=== PATIENT | male | born 1960 | race Two or more races ===

== ENCOUNTER 2024-08-14 06:16 | Outpatient (REF) | payer OTHER, MEDICARE, SELFPAY ==
--- NOTE | ~2024-08-14 | XR_ITS ---
EXAMINATION: XR SHOULDER, RIGHT CLINICAL INFORMATION: M25.519 - Pain in unspecified shoulder COMPARISON: None available. TECHNIQUE: AP external rotation, Grashey, scapular Y, and axillary views of the right shoulder. FINDINGS: Diffuse osteopenia. Probable old fracture deformity of the proximal humerus. No acute fracture or dislocation. Moderate degenerative arthritis of the glenohumeral joint with undersurface spurs. Mild degenerative AC joint arthritis with mild undersurface spurring. There is a type II acromion. Trace undersurface spurring. Mild to moderate narrowing of the subacromial space is noted. Remainder of the soft tissue and bony structures appear normal. XR/XR shoulder RT min 2V IMPRESSION: 1. Osteopenia. 2. Probable old fracture deformity proximal humerus. 3. Moderate glenohumeral joint and mild AC joint degenerative arthritis. 4. Mild to moderate narrowing of the subacromial space. Electronically signed by: Arjun Miranda MD 08/15/2024 01:55 PM EDT
--- OUTSIDE RECORDS SUMMARY | 2024-08-15 06:26 | XMS_ITS | Clinical Summary ---
Author Organization [address] [place] [address] Address [address] [place] [address] Phone Care Team Providers Care Billet Worker Name Role Phone Ankit Salazar MD Primary Care Provider [phone] Allergies Active Allergy Reactions Criticality Noted Date [...] up Dec 2011 Hypertension associated with diabetes ([facility] V24, [facility]/HCC V28) 04/02/2024 Vitamin D deficiency 04/02/2024 Bilateral pulmonary embolism ([facility] V24, [facility]/ CC V28) 11/17/2023 Carotid bruit present 12/13/2022 Numbness and tingling of foot 12/13/2022 Microalbuminuria 03/07/2020 Overview (04/02/2024): 08/2018 41.4 AC joint arthropathy 02/29/2020 Hyperlipidemia 04/16/2019 Periumbilical hernia 09/19/2018 Abdominal wall seroma 09/30/2017 Chronic cholecystitis due to gallbladder calculus with obstruction 09/30/2017 Morbid obesity with BMI of 4 0.0-44.9, adult ([facility] V24, [facility] V28) 09/30/2017 Chronic pain of both shoulders 05/02/2017 Melanoma of eye ([facility] V24, [facility] V28) 03/09 Bilateral shoulder pain 11/04/2016 DM (diabetes mellitus), type 2 with renal complications ([facility], [facility] V28) 08/05/2016 Spinal stenosis 08/22/2014 Anemia 05/16/2014 BPH (benign prostatic hyperplasia) 12/22/2013 Overview (04/02/2024): Dr Stacy Gillis 08/13/2013 Overview (04/02/2024): 02/03; ?d/t metformin, unclear Encounters Date Type Department Care Team Description 08/06/2024 10:30 AM EDT Office Visit [facility] Hematology Oncology [address] [place] [phone] Richard Oneill MD History of pulmonary embolism (Primary Dx); Prothrombin gene mutation ([facility] V24) 08/03/2024 Telephone [facility] Hematology Oncology [address] [place] [phone] Yadi Valenzuela MA 07/30/2024 Telephone [facility] Hematology Oncology [address] [place] [phone] Yadi Valenzuela [place] 07/27/2024 Telephone Internal Medicine - [facility] [address] [place] [phone] Ankit Salazar MD Medication Problem 07/23/2024 10:45 AM EDT Office Visit [facility] Hematology Oncology [address] [place] [phone] Richard Oneill MD Bilateral pulmonary embolism ([facility] V24, [facility] V28) 07/03/2024 8:30 AM EDT Consult General Surgery - [place] [address] [facility] [address] [place] [address] Harvinder Monahan MD Bilateral pulmonary embolism ([facility] V24, [facility] V28) (Primary Dx); Recurrent ventral incisional hernia; Internal hernia; Excessive body weight loss 06/28/2024 4:42 AM EST - 06/28/2024 9:31 AM EST Emergency [facility] Emergency [address] [place] [phone] Michelle Mccormick MD Patel, Parth B, MD Acute abdominal pain (Primary Dx); Nausea and vomiting, unspecified vomiting type; Small bowel obstruction ([facility] V24, [facility] V28); Large bowel obstruction ([facility] V24, [facility] V28); Obstructed internal hernia Discharge Disposition: Left Against Medical Advice 06/28/2024 [facility] [address] [place] [address] Ankit Salazar MD Abdominal Pain 06/28/2024 Telephone [facility] [address] [place] [address] Ankit Salazar MD information needed 06/25/2024 Telephone Vascular Surgery [facility] [address] [place] [phone] Kimberly Talamantes [place] Unresulted Orders 06/08/2024 Telephone Operating Room Manager [facility] [address] [place] [address] Marquita Moreno [place] Medicare Annual Wellness Visit Subsequent (AWV DUE 2024) 05/29/2024 9:30 AM EST [facility] [phone] Ankit Salazar MD Type 2 diabetes mellitus with other diabetic kidney complication, without long-term current use of insulin ([facility]/H[facility] V24, [facility]/H[facility] V28) (Primary Dx); Weight loss; Screening for [...] Date Site/Laterality Comments OTHER SURGICAL HISTORY PROCEDURE: VT ARTHRS KNEE DRILLING OSTEOCHOND DISSECANS LESION; COMMENT: L knee HERNIA REPAIR PROCEDURE: REPAIR UMBILICAL HERNIA CHOLECYSTECTOMY 09/2017 PROCEDURE: VT CHOLECYSTECTOMY COLONOSCOPY 01/22/2013 PROCEDURE: HISTORICAL COLONOSCOPY; COMMENT: [email or web address]; diverticulosis and small internal hemorrhoids. COLONOSCOPY 05/23/2009 PROCEDURE: HISTORICAL COLONOSCOPY; COMMENT: [email or web address]; 5 mm tubular adenomas x 2. UMBILICAL HERNIA REPAIR 02/05/2021 PROCEDURE: LAP UMBILICAL HERNIA REPAIR; COMMENT: robotic-assisted laparoscopic repair recurrent umbilical hernia without mesh (partially covered by incisional hernia mesh) - Madelin Dick OTHER SURGICAL HISTORY 02/05/2021 PROCEDURE: VT LAP RPR HRNA XCPT INCAL/INGUN NCRC8/STRANGULATED; COMMENT: [...] obesity with BMI of 4 0.0-44.9, adult ([facility] V[facility], [facility] V28) 09/30/2017 DX:Morbid obesity wit h BMI of 40.0-44.9, adult ([facility]) DM (diabetes mellitus), type 2 with renal complications ([facility] V[facility], [facility] V28) 08/05/2016 DX:DM (diabetes mellitus), t ype 2 with renal complications ([facility]) Microalbuminuria 03/07/2020 DX:Microalbumin uria; COMMENT: 08/2018 Abdominal [...] Description 08/20/2024 9:00 AM EDT Hospital Encounter [facility] Main OR [address] [place] [phone] Harvinder Monahan MD [address] [address] 08/20/2024 9:00 AM EDT - 08/20/2024 1:30 PM EDT Surgery [facility] Main OR [address] [place] [phone] Harvinder Monahan MD [address] [address] REPAIR INCISIONAL HERNIA [[id number] (CPT??)] 09/04/2024 1:15 PM EDT Office Visit General Surgery - [place] [address] [phone] Harvinder Monahan MD [address] [address] 10/05/2024 8:00 AM EDT Appointment [facility] Endoscopy [address] [place] [phone] Kirk Snowden DO [address] [address] Scheduled Procedures Name Priority Associated Diagnoses Date/Ti [...] pulmonary embolism ([facility]/HCC V24, [facility]/HCC V28) PROTHROMBIN 01827N MUTATION ANALYSIS Routine 07/23/2024 11:16 AM EDT [...] long-term current use of insulin ([facility]/HCC V24, [facility] V28) LIPID PANEL WITH REFLEX TO DIRECT [...] GEMUSE QTc 444 ms GEMUSE P Wave [place] 97 degrees GEMUSE R [place] -12 degrees GEMUSE T [place] 10 degrees GEMUSE ECG Interpretation Normal sinus rhythm When compared with ECG of 28-SEP-2023 12:36, No significant change was found Confirmed by MARKIE LOPEZ ([id number]) on 08/08/2024 5:19:38 PM GEMUSE 08/07/2024 9:07 AM EDT 08/08/2024 5:19 PM EDT us Harvinder Monahan MD ECG ORDERABLES Final Resul t GEMUSE * Prothrombin time with INR (08/07/2024 8:59 AM EDT) Protime 11.7 10.6 - 13.9 sec LAB COAGULATION METHOD 08/07/2024 9:22 AM EDT [facility] INR 0.9 LAB COAGULATION METHOD 08/07/2024 9:22 AM EDT [facility] Blood Venous blood specimen / Unknown Venipuncture / Unknown 08/07/2024 8:59 AM EDT 08/07/2024 9:15 AM EDT us Harvinder Monahan MD LAB BLOOD ORDERABLES Final Result Performing Organization Address City/[facility]/ZIP Co de Phone Number [facility] [address] [place] [address], [place] [phone] * Prealbumin (08/07/2024 8:59 AM EDT) Prealbumin 19 18 - 45 mg/dL LAB CHEMISTRY METHOD 08/07/2024 9:45 AM EDT [facility] Blood Venous blood specimen / Unknown Venipuncture / Unknown 08/07/2024 8:59 AM EDT 08/07/2024 9:15 AM EDT us Harvinder Monahan MD LAB BLOOD ORDERABLES Final Result Performing Organization Address [facility]/ZIP Co de Phone Number [facility] [address] [place] [address], [place] [phone] * (ABNORMAL) Comprehensive metabolic panel (08/07/2024 8:59 AM EDT) Only the most recent of3 resultswithin the time period is included. Sodium 140 133 - 145 mmol/L LAB CHEMISTRY METHOD 08/07/2024 9:45 AM EDT [facility] Potassium 3.6 3.5 - 5.5 mmol/L LAB CHEMISTRY METHOD 08/07/2024 9:45 AM EDT [facility] Chloride 111(H) 96 - 110 mmol/L LAB CHEMISTRY METHOD 08/07/2024 9:45 AM EDT [facility] CO2 21 21 - 32 mmol/L LAB CHEMISTRY METHOD 08/07/2024 9:45 AM EDT [facility] Anion Gap 8 3 - 11 LAB CHEMISTRY METHOD 08/07/2024 9:45 AM [facility] Glucose 117(H) 70 - 100 mg/dL LAB CHEMISTRY METHOD 08/07/2024 9:45 AM [facility] BUN 30(H) 5 - 25 mg/dL LAB CHEMISTRY METHOD 08/07/2024 9:45 AM [facility] Creatinine 1.29 0.70 - 1.30 mg/dL LAB CHEMISTRY METHOD 08/07/2024 9:45 AM [facility] eGFR 62 >=60 mL/min/1. 73m2 LAB CHEMISTRY METHOD 08/07/2024 9:45 AM [facility] Comment:Calculation based on the??Chronic Kidney Disease Epidemiology Collaboration (CKD-EPI) equation refit??without adjustment for race. BUN/Creatinine Ratio 23.3 LAB CHEMISTRY METHOD 08/07/2024 9:45 AM [facility] Calcium 8.1(L) 8.5 - 10.5 mg/dL LAB CHEMISTRY METHOD 08/07/2024 9:45 AM [facility] AST (SGOT) 22 10 - 42 unit/L LAB CHEMISTRY METHOD 08/07/2024 9:45 AM [facility] ALT (SGPT) 28 10 - 60 unit/L LAB CHEMISTRY METHOD 08/07/2024 9:45 AM [facility] Alkaline Phosphatase 110 42 - 121 unit/L LAB CHEMISTRY METHOD 08/07/2024 9:45 AM [facility] Total Protein 6.1 6.0 - 8.0 g/dL LAB CHEMISTRY METHOD 08/07/2024 9:45 AM [facility] Albumin 3.3 3.2 - 5.0 g/dL LAB CHEMISTRY METHOD 08/07/2024 9:45 AM [facility] Total Bilirubin 0.5 0.0 - 1.4 mg/dL LAB CHEMISTRY METHOD 08/07/2024 9:45 AM [facility] Blood Venous blood specimen / Unknown Venipuncture / Unknown 08/07/2024 8:59 AM EDT 08/07/2024 9:15 AM EDT us Harvinder Monahan MD LAB BLOOD ORDERABLES Final Result [facility] [address] [place] [address], * (ABNORMAL) Prothrombin 55855Q mutation analysis (07/23/2024 11:16 AM EDT) Prothrombin 71044S Mutation Analysis Heterozyg ous(A) 07/27/2024 1:59 PM EDT [facility] Comment: Both the wild type (WT) F2 gene and the c.*97G>A pathogenic variant ([id number]) were detected indicating a heterozygous c.*97G>A genotype [...] the pathogenic c.*97G>A variant (also known as [id number]) in genomic DNA isolated from whole blood specimens as an aid in diagnosing patients with suspected thrombophilia. The letty(R) Factor II Test and the letty z 480 analyzer are used together for automated amplification and detection. The limit of detection for this test is 0.1 ng/uL of genomic DNA (2.5 ng/PCR reaction). Test performed at [facility], [address] [place], [place] ??[address] ? [phone] Madelyn Villegas MD, PhD - Traveling Clerk Blood Venous blood specimen / Unknown Venipuncture / Unknown 07/23/2024 11:16 AM EDT 07/23/2024 1:37 PM EDT Richard Oneill MD LAB MOLECULAR DIAGNOSTICS OR DERABLES Final Result Performing Organization Address [facility] Co de Phone Number [facility] [address] [place] [address] * Protein S activity (07/23/2024 11:16 AM EDT) [facility] Protein S Activity 72 65 - 140 % 2024 10:48 AM EDT [facility] Comment: Heparin levels up to 1 IU/mL do not affect test results; higher levels may cause false elevation. ??Thrombin inhibitors and direct oral anticoagulants may lead to over-estimation of proein S level by this assay. Note that measurement of protein S or free protein S antigen levels would be less affected by medication. Test performed at [facility], [address], [place] ??[address] ? [phone] Madelyn Villegas MD, PhD - Traveling Clerk Blood Venous blood specimen / Unknown Venipuncture / Unknown 07/23/2024 11:16 AM EDT 07/23/2024 1:37 PM EDT Richard Oneill MD LAB BLOOD ORDERABLES Final R esult Performing Organization Address [facility]/ZIP Co de Phone Number [facility] [address] [place] [address] * Protein C activity (07/23/2024 11:16 AM EDT) Pathologist [facility] Protein C Activity 75 70 - 130 % 07/26/2024 10:48 AM EDT [facility] Comment: Heparin levels up to 1 IU/mL do not affect test results. Higher levels may cause elevated levels. Test performed at [facility], [address], [place], [place] ??[address] ? [phone] Madelyn Villegas MD, PhD - Traveling Clerk Blood Venous blood specimen / Unknown Venipuncture / Unknown 07/23/2024 11:16 AM EDT 07/23/2024 1:37 PM EDT Richard Oneill MD LAB BLOOD ORDERABLES Final R esult [facility] [address] [place] [address] * Cardiolipin antibody (07/23/2024 11:16 AM EDT) [facility] Cardiolipin Antibody Screen Negative Negative LAB CHEMISTRY METHOD 07/24/2024 10:16 AM EDT [facility] Blood Venous blood specimen / Unknown Venipuncture / Unknown 07/23/2024 11:16 AM EDT 07/23/2024 1:36 PM EDT Richard Oneill MD LAB BLOOD ORDERABLES Final R esult [facility] [address] [place] [address], * Factor V leiden (07/23/2024 11:16 AM EDT) [facility] Factor V Leiden Mutation Negative 07/27/2024 1:59 [...] DNA (2.5 ng/PCR reaction). Test performed at [facility], [address], [place] ??[address] ? [phone] Madelyn Villegas MD, PhD - Traveling Clerk Blood Venous blood specimen / Unknown Venipuncture / Unknown 07/23/2024 11:16 AM EDT 07/23/2024 1:37 PM EDT Richard Oneill MD LAB MOLECULAR DIAGNOSTICS OR DERABLES Final Result [facility] [address] [place] [address] * Antithrombin III activity (07/23/2024 11:16 AM EDT) [facility] Antithrombin III Activity 98 80 - 120 % 07/26/2024 10:48 AM EDT [facility] Comment: AT3 Activity is affected by thrombin inhibitors. Test performed at [facility], [address], [place] ??[address] ? [phone] Madelyn Villegas MD, PhD - Traveling Clerk Blood Venous blood specimen / Unknown Venipuncture / Unknown 07/23/2024 11:16 AM EDT 07/23/2024 1:37 PM EDT us Richard Oneill MD LAB BLOOD ORDERABLES Final R esult [facility] [address] [place] [address] * CT Abdomen Pelvis w [...] K/mcL LAB HEMETOLOGY METHOD 06/27/2024 10:11 PM [facility] RBC 4.10(L) 4.50 - 5.50 M/mcL LAB HEMETOLOGY METHOD 06/27/2024 10:11 PM [facility] Hemoglobin 10.9(L) 13.5 - 17.5 g/dL LAB HEMETOLOGY METHOD 06/27/2024 10:11 PM [facility] Hematocrit 35.1(L) 42.0 - 54.0 % LAB HEMETOLOGY METHOD 06/27/2024 10:11 PM [facility] MCV 84.8 79.0 - 98.0 FL LAB HEMETOLOGY METHOD 06/27/2024 10:11 PM [facility] MCH 26.3(L) 27.0 - 32.0 pcg LAB HEMETOLOGY METHOD 06/27/2024 10:11 PM [facility] MCHC 31.1(L) 32.0 - 37.0 g/dL LAB HEMETOLOGY METHOD 06/27/2024 10:11 PM [facility] RDW 15.7(H) 11.0 - 15.0 % LAB HEMETOLOGY METHOD 06/27/2024 10:11 PM [facility] Platelets 256 130 - 400 K/mcL LAB HEMETOLOGY METHOD 06/27/2024 10:11 PM [facility] MPV 9.3 7.0 - 11.0 FL LAB HEMETOLOGY METHOD 06/27/2024 10:11 PM [facility] NRBC 0.0 <1.0 % LAB HEMETOLOGY METHOD 06/27/2024 10:11 PM [facility] NRBC Absolute 0.00 <0.10 K/mcL LAB HEMETOLOGY METHOD 06/27/2024 10:11 PM [facility] Neutrophils Relative 66.7 % LAB HEMETOLOGY METHOD 06/27/2024 10:11 PM [facility] Lymphocytes Relative 20.7 % LAB HEMETOLOGY METHOD 06/27/2024 10:11 PM [facility] Monocytes Relative 7.0 % LAB HEMETOLOGY METHOD 06/27/2024 10:11 PM [facility] Eosinophils Relative 5.0 % LAB HEMETOLOGY METHOD 06/27/2024 10:11 PM [facility] Basophils Relative 0.3 % LAB HEMETOLOGY METHOD 06/27/2024 10:11 PM [facility] Immature Granulocytes Relative 0.3 % LAB HEMETOLOGY METHOD 06/27/2024 10:11 PM [facility] Neutrophils Absolute 5.08 1.50 - 7.00 K/mcL LAB HEMETOLOGY METHOD 06/27/2024 10:11 PM [facility] Lymphocytes Absolute 1.57 1.00 - 5.00 K/mcL LAB HEMETOLOGY METHOD 06/27/2024 10:11 PM [facility] Monocytes Absolute 0.53 0.20 - 1.00 K/mcL LAB HEMETOLOGY METHOD 06/27/2024 10:11 PM [facility] Eosinophils Absolute 0.38 0.00 - 0.50 K/mcL LAB HEMETOLOGY METHOD 06/27/2024 10:11 PM [facility] Basophils Absolute 0.02 0.00 - 0.20 K/mcL LAB HEMETOLOGY METHOD 06/27/2024 10:11 PM [facility] Immature Granulocytes Absolute 0.02 0.00 - 0.03 K/mcL LAB HEMETOLOGY METHOD 06/27/2024 10:11 PM [facility] Blood Venous blood specimen / Unknown Venipuncture / Unknown 06/27/2024 9:45 PM EST 06/27/2024 10:04 PM EST us Jose Dick DO LAB BLOOD ORDERABLES Final Res ult [facility] [address] [place] [address], * Lipase (06/27/2024 9:45 PM EST) Lipase 38 13 - 75 unit/L LAB CHEMISTRY METHOD 06/27/2024 10:31 PM EST [facility] Blood Venous blood specimen / Unknown Venipuncture / Unknown 06/27/2024 9:45 PM EST 06/27/2024 10:04 PM EST Jose Dick DO LAB BLOOD ORDERABLES Final Res ult Performing Organization Address City/[facility]/ZIP Co de Phone Number [facility] [address] [place] [address], [place] [phone] * Lipid panel with reflex to direct LDL (05/29/2024 10:29 AM EST) Cholesterol 88 0 - 200 mg/dL LAB CHEMISTRY METHOD 05/29/2024 2:24 PM EST [facility] Triglycerides 48 0 - 150 mg/dL LAB CHEMISTRY METHOD 05/29/2024 2:24 PM [facility] HDL 47 >=40 mg/dL LAB CHEMISTRY METHOD 05/29/2024 2:24 PM [facility] LDL Calculated 31 0 - 100 mg/dL LAB CHEMISTRY METHOD 05/29/2024 2:24 PM EST [facility] VLDL Cholesterol Sp 9.6 mg/dL LAB CHEMISTRY METHOD 05/29/2024 2:24 PM EST [facility] Non HDL Chol. (LDL+VLDL) 41 <145 mg/dL LAB CHEMISTRY METHOD 05/29/2024 2:24 PM EST [facility] Chol/HDL Ratio 1.9 0.0 - 4.4 LAB CHEMISTRY METHOD 05/29/2024 2:24 PM [facility] Blood Venous blood specimen / Unknown Venipuncture / Unknown 05/29/2024 10:29 AM EST 05/29/2024 10:29 AM EST Ankit Salazar MD LAB BLOOD ORDERABLES Final Res ult Performing Organization Address City/[facility]/ZIP Co de Phone Number [facility] [address] [place] [address], [place] [phone] * Microalbumin creatinine urine ratio (05/29/2024 10:29 AM EST) Creatinine, Urine 183.0 mg/dL LAB CHEMISTRY METHOD 05/29/2024 12:22 PM [facility] Microalb, Ur 8.4 0.0 - 29.0 mg/L LAB CHEMISTRY METHOD 05/29/2024 12:22 PM [facility] Microalb/Creat Ratio 5 <30 mg/g creat LAB CHEMISTRY METHOD 05/29/2024 12:22 PM [facility] Urine Urine specimen obtained by clean catch procedure / Unknown Non-blood Collection / Unknown 05/29/2024 10:29 AM EST 05/29/2024 10:29 AM EST us Ankit Salazar MD LAB URINE ORDERABLES Final Res ult [facility] [address] [place] [address], [place] [phone] * Hemoglobin A1c (05/29/2024 10:29 AM EST) Pathologist [facility] Hemoglobin A1C 5.4 <6.5 % LAB CHEMISTRY METHOD 05/29/2024 2:08 PM [facility] Mean Bld Glu Estim. 108 mg/dL LAB CHEMISTRY METHOD 05/29/2024 2:08 PM [facility] Blood Venous blood specimen / Unknown Venipuncture / Unknown 05/29/2024 10:29 AM EST 05/29/2024 10:29 AM EST us Ankit Salazar MD LAB BLOOD ORDERABLES Final Res ult [facility] [address] [place] [address], [place] [phone] * Hm Diabetes Eye Exam (06/27/2023) [facility] Diabetes: Annual Retina Eye Exam abstracted Historical Provider HEALTH MAINTENANCE Final Result * Colonoscopy (07/24/2018) [facility] Colonoscopy negative, abstracted Anatomical Region Laterality Modality Other [facility] Provider HEALTH MAINTENANCE Final Result * Hepatitis C Screening (05/21/2013) [facility] Hepatitis C Screening abstracted Historical Provider HEALTH MAINTENANCE Final Result from Last 3 Months or Most Recently Relevant to Health Maintenance Insurance MEDICARE [employer] Care Teams Billet Worker Relationship Specialty Start Date End Date Ankit Salazar MD [address] [place] [id number] PCP - General Internal Medicine 05/03/24
--- OUTSIDE RECORDS SUMMARY | 2024-08-15 06:26 | XMS_ITS | Encounter Summary ---
Author Organization [facility] Address [address] [place] [address] Care Team Providers Care Area Cleaner Name Role Phone Ankit Salazar MD Primary Care Provider [phone] Reason for Visit * Reason Onset Date Comments Medication Problem 07/27/2024 Encounter Details Date Type Department Care Team (Late st Contact Info) Description 07/27/2024 [facility] [address] [place] [phone] Ankit Salazar MD [address] [place] [address] Medication Problem Social History Tobacco Use Types [...] calling about the problem? : [facility] Who is patients PCP?: Ankit Salazar MD Payor: MEDICARE / Plan: MEDICARE PART A & B / Product Type: Medicare / documented in this encounter Plan of Treatment Upcoming Encounters Date Type Department Care Team (Latest Contact Info) Description 08/20/2024 9:00 AM EDT Hospital Encounter [facility] Main OR [address] [place] [phone] Harvinder Monahan MD [address] [address] 08/20/2024 9:00 AM EDT - 08/20/2024 1:30 PM EDT Surgery [facility] OR [address] [place] [address] Harvinder Monahan MD [address] [address] REPAIR INCISIONAL HERNIA [[id number] (CPT??)] 09/04/2024 1:15 PM EDT Office Visit General Surgery - [address] [phone] Harvinder Monahan MD [address] [address] 10/05/2024 8:00 AM EDT Appointment [facility] Endoscopy [address] [place] [phone] Kirk Snowden DO 175 [facility] [address] [place] [address] Scheduled Procedures Name Priority Associated Diagnoses Date/Ti [...] documented as of this encounter Care Teams Area Cleaner Relationship Specialty Start Date End Date Ankit Salazar MD [address] [place] [address] PCP - General Internal Medicine 05/03/24 documented as of this encounter
--- OUTSIDE RECORDS SUMMARY | 2024-08-15 06:26 | XMS_ITS | Clinical Summary ---
Author Organization [facility] Facility Address [address] [place] [address], [place] [address] Care Team Providers Care Welt Trimming Machine Operator Name Role Phone Ankit Salazar MD Primary Care Provider Social History Tobacco Use Types Packs/Day Years [...] [place] Care Teams Welt Trimming Machine Operator Relationship Specialty Start Date End Date Ankit Salazar MD PCP - General Internal Medicine 08/04/23
== END 2024-08-14 06:17 | disposition home or self-care (01) ==
LOC: HO.HOSX 06:16
PROVIDERS: Visit Provider Physician Assistant
DX: M25.511 Pain in right shoulder (principal)
CPT/HCPCS: 73030

== ENCOUNTER 2024-08-14 13:59 | Outpatient (AMB) | payer OTHER, MEDICARE, SELFPAY ==
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
[2024-08-14 14:23] VITALS: BMI 23.1
--- OUTSIDE RECORDS SUMMARY | 2024-08-14 16:47 | XMS_ITS | Encounter Summary ---
Author Organization [facility] Address [address] [place] [address] Care Team Providers Care Machine Tool Operator Name Role Phone Ankit Salazar MD Primary Care Provider [phone] Reason for Visit * Reason Onset Date Comments Medication Problem 07/27/2024 Encounter Details Date Type Department Care Team (Late st Contact Info) Description 07/27/2024 [facility]phone [facility] [address] [place] [phone] Ankit Salazar MD [address] [place] [phone] Medication Problem Social History Tobacco Use Types Packs/Day Years Used Date Smoking Tobacco: Former Cigarettes 0.2 10.3 0 1978 - 04/25/1989 Smokeless Tobacco: Never Alcohol Use Standard Drinks/Week Comments No 0 (1 standard drink = 0.6 oz pur e alcohol) Sex and Gender Information Value Date Recorded Sex Assigned at Male 06/28/2024 6:57 AM EST Legal Sex Male 5:07 PM EST Gender Identity Male 06/28/2024 6:57 AM EST Sexual Orientation Choose not to disclose 2024 6:57 AM EST documented as of this encounter Progress Notes * Ankit Salazar MD - 07/27/2024 11:00 AM EDT Will hold on substitute as the patient was using indomethacin only for flareups of his gout. * Cheryle Cardona MA - 07/27/2024 9:42 AM EDT Fax from pharmacy, indomethacin not covered, insurance prefers meloxicam. * Bety Tolentino - 07/27/2024 9:01 AM EDT Medication Problem: What is the name of the medication patient is having a problem with?: indomethacin (INDOCIN) 25 mg capsule What is the problem?: not covered, fax states preferred alternative is meloxicam Who is calling about the problem? : faxed - [facility] Who is patients PCP?: Ankit Salazar MD Payor: MEDICARE / Plan: MEDICARE PART A & B / Product Type: Medicare / documented in this encounter Plan of Treatment Upcoming Encounters Date Type Department Care Team (Latest Contact Info) Description 08/20/2024 9:00 AM EDT Hospital Encounter [facility] Main OR [address] [place] [phone] Harvinder Monahan MD [address] [address] 08/20/2024 9:00 AM EDT - 08/20/2024 1:30 PM EDT Surgery [facility] OR [address] [place] [address] Harvinder Monahan MD [address] [address] REPAIR INCISIONAL HERNIA [[id number] (CPT??)] 09/04/2024 1:15 PM EDT Office Visit General Surgery - [address] [phone] Harvinder Monahan MD [address] [address] 10/05/2024 8:00 AM EDT Appointment [facility] Endoscopy [address] [place] [phone] Kirk Snowden DO 175 [facility] [address] [place] [address] Scheduled Procedures Name Priority Associated Diagnoses Date/Ti me REPAIR HERNIA INCISIONAL Recurrent ventral incisional hernia Internal hernia 08/20/2024 9:00 AM EDT LYSIS ADHESIONS Recurrent ventral incisional hernia Internal hernia 08/20/2024 9:00 AM EDT LAPAROTOMY EXPLORATORY Recurrent ventral incisional hernia Internal hernia 08/20/2024 9:00 AM EDT ABDOMINOPLASTY Recurrent ventral incisional hernia Internal hernia 08/20/2024 9:00 AM EDT RELEASE TRANSVERSUS ABDOMINU S LAPAROSCOPIC Recurrent ventral incisional hernia Internal hernia 08/20/2024 9:00 AM EDT documented as of this encounter Visit Diagnoses Not on filedocumented in this encounter Discontinued Medications Medication Sig Discontinue Reason Start Date End Da te indomethacin (INDOCIN) 25 mg capsule Take 1 capsule (25 mg total) by mouth 2 (two) times a day with meals. Formulary change 05/29/2024 07/27/2024 documented as of this encounter Care Teams Machine Tool Operator Relationship Specialty Start Date End Date Ankit Salazar MD [address] [place] [id number] PCP - General Internal Medicine 05/03/24 documented as of this encounter
--- OUTSIDE RECORDS SUMMARY | 2024-08-14 16:47 | XMS_ITS | Clinical Summary ---
Author Organization [address] [place] [address] Address [address] [place] [address] Phone Care Team Providers [employer] Athletic Director Name Role Phone Ankit Salazar MD Primary Care Provider [phone] Allergies Active Allergy Reactions Criticality Noted Date Comments Avocado Anaphylaxis High 09/04/2014 Throat swells up and closes Latex 01/21/2021 Medications acetaminophen (TYLENOL) 325 mg tablet Take 2 Tablets by mouth every 6 hours as needed. Active allopurinoL (ZYLOPRIM) 100 mg tablet TAKE 1 TABLET BY MOUTH TWICE DAILY 08/15/19 24 Active aluminum-magnes ium hydroxide-simet hicone (MAALOX) 200-200-20 mg/5 mL suspension Take 15 mL by mouth 4 times daily as needed for Other (heartburn). 05/30/19 24 Active ammonium lactate (LAC-HYDRIN) 12 % lotion Apply to soles of feet daily. At night wear socks to bed 05/10/19 23 Active blood-glucose meter (Contour Next One Meter) misc 1 Device by Does not apply route 2 times daily. 08/13/19 23 Active flash glucose sensor (FREESTYLE HERLINDA 2 SENSOR MISC) 1 Device by Does not apply route every 14 days. 07/16/19 22 Active diclofenac (VOLTAREN) 1 % topical gel Apply 4 g topically 2 times daily. For 8 weeks 04/21/20 20 Active blood sugar diagnostic (Contour Next Test Strips) test strip USE TWICE DAILY 09/15/19 22 Active magnesium oxide (MAG-OX) 400 mg magnesium tablet Take 1 Tablet by mouth 2 times daily. 11/11/19 24 Active miconazole (MICOTIN) 2 % powder Sprinkle inbetween toes after drying after showers 07/26/19 19 Active lancets lancets Microlet Lancets Misc TEST TWICE DAILY 09/16/19 22 Active omega-3 fatty acids 1,000 mg capsule Take by mouth. Active potassium chloride 20 mEq tablet extended release Take 1 Tablet by mouth daily. 09/28/19 24 Active SODIUM BICARBONATE ORAL Take by mouth. Active atorvastatin (LIPITOR) 20 mg tablet Take 1 tablet (20 mg total) by mouth 1 (one) time each day. 90 tablet 1 05/29/19 25 Active aspirin 81 mg EC tablet TAKE 1 TABLET BY MOUTH DAILY 02/08/20 23 025 Discontinued apixaban (Eliquis) 5 mg tablet Take 5 mg by mouth daily. 11/17/19 24 025 Discontinued indomethacin (INDOCIN) 25 mg capsule Take 1 capsule (25 mg total) by mouth 2 (two) times a day with meals. 30 capsule 1 05/29/19 25 025 Discontinued(Fo rmulary change) Hospital, Clinic, or Other Facility Administered Medication Ordered Dose Route Frequency Start Date End Date Status chlorhexidine (HIBICLENS) 4 % liquidIndications:Recurrent ventral incisional hernia TP Daily PRN 07/03/2024 Active Active Problems Problem Noted Date Diagnosed Date Recurrent ventral incisional hernia 07/03/2024 Internal hernia 07/03/2024 Excessive body weight loss 07/03/2024 History of small bowel obstruction 05/29/2024 GERD (gastroesophageal reflux disease) Gout 04/02/2024 Overview (04/02/2024): last flare up Dec 2011 Hypertension associated with diabetes ([facility] V24, [facility]/HCC V28) 04/02/2024 Vitamin D deficiency 04/02/2024 Bilateral pulmonary embolism ([facility] V24, [facility]/ CC V28) 11/17/2023 Carotid bruit present 12/13/2022 Numbness and tingling of foot 12/13/2022 Microalbuminuria 03/07/2020 Overview (04/02/2024): 08/2018 41.4 AC joint arthropathy 02/29/2020 Hyperlipidemia 04/16/2019 Periumbilical hernia 09/19/2018 Abdominal wall seroma 09/30/2017 Chronic cholecystitis due to gallbladder calculus with obstruction 09/30/2017 Morbid obesity with BMI of 4 0.0-44.9, adult ([facility] V24, [facility] V28) 09/30/2017 Chronic pain of both shoulders 05/02/2017 Melanoma of eye ([facility] V24, [facility] V28) 03/09 Bilateral shoulder pain 11/04/2016 DM (diabetes mellitus), type 2 with renal complications ([facility] V24, [facility] V28) 08/05/2016 Spinal stenosis 08/22/2014 Anemia 05/16/2014 BPH (benign prostatic hyperplasia) 12/22/2013 Overview (04/02/2024): Dr Stacy Gillis 08/13/2013 Overview (04/02/2024): 02/03; ?d/t metformin, unclear Encounters Date Type Department Care Team Description 08/06/2024 10:30 AM EDT Office Visit [facility] Hematology Oncology [address] [place] [phone] Richard Oneill MD History of pulmonary embolism (Primary Dx); Prothrombin gene mutation ([facility] V24) 08/03/2024 Telephone [facility] Hematology Oncology [address] [place] [phone] Yadi Valenzuela MA 07/30/2024 Telephone [facility] Hematology Oncology [address] [place] [phone] Yadi Valenzuela [place] 07/27/2024 Telephone [facility] - [facility] [address] [facility] [place] [phone] Ankit Salazar MD Medication Problem 07/23/2024 10:45 AM EDT Office Visit [facility] Hematology Oncology [address] [place] [phone] Richard Oneill MD Bilateral pulmonary embolism ([facility] V24, [facility] V28) 07/03/2024 8:30 AM EDT Consult General Surgery - [place] [address] [facility] [address] [place] [address] Harvinder Monahan MD Bilateral pulmonary embolism ([facility] V24, [facility] V28) (Primary Dx); Recurrent ventral incisional hernia; Internal hernia; Excessive body weight loss 06/28/2024 4:42 AM EST - 06/28/2024 9:31 AM EST Emergency [facility] Emergency [address] [place] [phone] Michelle Mccormick MD Patel, Parth B, MD Acute abdominal pain (Primary Dx); Nausea and vomiting, unspecified vomiting type; Small bowel obstruction ([facility] V24, [facility] V28); Large bowel obstruction ([facility] V24, [facility] V28); Obstructed internal hernia Discharge Disposition: Left Against Medical Advice 06/28/2024 [facility] [address] [place] [address] Ankit Salazar MD Abdominal Pain 06/28/2024 Telephone [facility] [address] [place] [address] Ankit Salazar MD information needed 06/25/2024 Telephone Vascular Surgery [facility] [address] [place] [phone] Kimberly Talamantes [place] Unresulted Orders 06/08/2024 Telephone [facility] [address] [place] [address] Marquita Moreno [place] Medicare Annual Wellness Visit Subsequent (AWV DUE 2024) 05/29/2024 9:30 AM EST [facility] [address] [phone] Ankit Salazar MD Type 2 diabetes mellitus with other diabetic kidney complication, without long-term current use of insulin ([facility]/HCC V24, [facility]/HCC V28) (Primary Dx); Weight loss; Screening for colon cancer; History of small bowel obstruction from Last 3 Months Immunizations Name Administration Dates Next Due Influenza Quadravalent, MDCK , 0.5ml, preservative free (Flucelvax) 6mo and older 02/14/2020,01/04/2018 Influenza Quadravalent, MDCK , 0.5ml, with preservative (Flucelvax) 6mo and older 03/23/2017 Influenza trivalent, 0.5mL ( Fluad) 65yo and older 02/20/2019 Influenza trivalent, 0.5mL, preservative free (Fluarix; FluLaval; Fluzone) ages 6mo and older (Afluria) 3 years and older 01/08/2016,01/29/2015,03/12/2014,2012 Pneumococcal conjugate 13 va lent (Prevnar 13, PCV13) 2mo and older 01/22/2022 Tdap Tetanus diptheria acell ular pertussis (Boostrix; Adacel) 7yo and older 05/03/2013 Surgical History Surgery Date Site/Laterality Comments OTHER SURGICAL HISTORY PROCEDURE: [place] ARTHRS KNEE DRILLING OSTEOCHOND DISSECANS LESION; COMMENT: L knee HERNIA REPAIR PROCEDURE: REPAIR UMBILICAL HERNIA CHOLECYSTECTOMY 09/2017 PROCEDURE: [place] CHOLECYSTECTOMY COLONOSCOPY 01/22/2013 PROCEDURE: HISTORICAL COLONOSCOPY; COMMENT: [email or web address]; diverticulosis and small internal hemorrhoids. COLONOSCOPY 05/23/2009 PROCEDURE: HISTORICAL COLONOSCOPY; COMMENT: [email or web address]@[facility]; 5 mm tubular adenomas x 2. UMBILICAL HERNIA REPAIR 02/05/2021 PROCEDURE: LAP UMBILICAL HERNIA REPAIR; COMMENT: robotic-assisted laparoscopic repair recurrent umbilical hernia without mesh (partially covered by incisional hernia mesh) - Madelin Dick OTHER SURGICAL HISTORY 02/05/2021 PROCEDURE: [place] LAP RPR HRNA XCPT INCAL/INGUN NCRC8/STRANGULATED; COMMENT: robotic-assisted laparoscopic incisional hernia repair with mesh (epigastric midline) - Madelin Dick EXPLORATORY LAPAROTOMY APPENDECTOMY RIGHT COLECTOMY Right Medical History Medical History Date Comments HTN (hypertension) 20 yrs DX:HTN (hyper tension) Gout 2003 DX:Gout; COMMENT : last flare up Dec 2011 Vitamin deficiency DX:Vitamin de ficiency GERD (gastroesophageal reflux disease) DX:GERD (gastroesophageal reflux disease) Type II or unspecified type diabetes mellitus without mention of complication, not stated as uncontrolled 2004 DX:Type II or unspecified ty pe diabetes mellitus without mention of complication, not stated as uncontrolled Asthma DX:Asthma History of colonic polyps 12/05/2017 DX:His tory of colonic polyps; COMMENT: Diminutive tubular adenomas ? 2 at colonoscopy 2009. Morbid obesity with BMI of 4 0.0-44.9, adult ([facility] V24, [facility] V28) 09/30/2017 DX:Morbid obesity wit h BMI of 40.0-44.9, adult ([facility]) DM (diabetes mellitus), type 2 with renal complications ([facility] V24, [facility] V28) 08/05/2016 DX:DM (diabetes mellitus), t ype 2 with renal complications ([facility]) Microalbuminuria 03/07/2020 DX:Microalbumin uria; COMMENT: 08/2018 Abdominal pain DX:Abdominal franc n Postprandial epigastric pain DX: Postprandial epigastric pain Irritable bowel syndrome DX:Irri table bowel syndrome Passage of loose stools DX:Passa ge of loose stools History of abdominal surgery DX: History of abdominal surgery Abdominal wall hernia DX:Abdomin al wall hernia History of small bowel obstruction DX:History of small bowel obstruction Salmonella Family History Medical History Relation Name Comments Colon cancer Father Diagnoses older than age 6060 years old. rectal cancer; needed a colostomy. Breast cancer Mother Relation Name Status Comments Father Alive Mother (Age 71) Social History Tobacco Use Types Packs/Day Years Used Date Smoking Tobacco: Former Cigarettes 0.2 10.3 0 1978 - 04/25/1989 Smokeless Tobacco: Never Tobacco Cessation:Counseling Given: Not Answered Alcohol Use Standard Drinks/Week Comments No 0 (1 standard drink = 0.6 oz pur e alcohol) Sex and Gender Information Value Date Recorded Sex Assigned at Male 06/28/2024 6:57 AM EST Legal Sex Male 5:07 PM EST Gender Identity Male 06/28/2024 6:57 AM EST Sexual Orientation Choose not to disclose 2024 6:57 AM EST Obstetrics History Last Filed Vital Signs Vital Sign Reading Time Taken Comments Blood Pressure 115/69 08/06/2024 10:30 AM EDT Pulse 69 08/06/2024 10:30 AM EDT Temperature 36.4 ??C (97.6 ??F) 08/06/2024 10:30 AM E DT Respiratory Rate 17 06/28/2024 5:53 AM EST Oxygen Saturation 100% 08/06/2024 10:30 AM EDT Inhaled Oxygen Concentration - - Weight 65.8 kg (145 lb) 08/06/2024 10:30 AM EDT Height 167.6 cm (5' 6 ) 08/01/2024 3:00 PM EDT Body Mass Index 23.4 08/01/2024 3:00 PM EDT Plan of Treatment Upcoming Encounters Date Type Department Care Team (Latest Contact Info) Description 08/20/2024 9:00 AM EDT Hospital Encounter [facility] Main OR [address] [place] [phone] Harvinder Monahan MD [address] [phone] 08/20/2024 9:00 AM EDT - 08/20/2024 1:30 PM EDT Surgery [facility] Main OR [address] [place] [phone] Harvinder Monahan MD [address] [address] REPAIR INCISIONAL HERNIA [[id number] (CPT??)] 09/04/2024 1:15 PM EDT Office Visit General Surgery - Green [address] [phone] Harvinder Monahan MD [address] [address] 10/05/2024 8:00 AM EDT Appointment [facility] Endoscopy [address] [place] [phone] Kirk Snowden DO [address] [address] Scheduled Procedures Name Priority Associated Diagnoses Date/Ti [...] hernia Internal hernia 08/20/2024 9:00 AM EDT Health Maintenance Due Date Last Done Comments Diabetes: Annual Foot Exam 1968 Zoster Vaccines (1 of 2) 1977 RSV Immunization Adult Patients (1 - Risk 60-74 years 1-dose series) 2018 Pneumococcal Vaccine: 50+ Years (2 of 2 - PPSV23) 03/19/2022 01/22/2022 Pneumococcal Vaccine: Pediatrics (0 to 5 Years) and At-Risk Patients (6 to 64 Years) (2 of 2 - PPSV23) 03/19/2022 01/22/2022 Abdominal Aortic Aneurysm (AAA) Screen 04/03/2022 Depression Screening 04/03/2022 Medicare Annual Wellness Visit 04/03/2022 Social Influencers of Health Screening 04/03/2022 DTaP,Tdap,and Td Vaccines (2 - Td or Tdap) 05/03/2023 05/03/2013 Colorectal Cancer Screening: Colonoscopy 07/25/2023 07/24/2018 Falls Risk Assessment 12/22/2023 COVID-19 Vaccine ( season) 2023 03/27/2021, 08/21/2020, 05/13/2020 Diabetes: Annual Retina Eye Exam 06/26/2024 06/27/2023 Diabetes: Blood Sugar Control Test (HGBA1C) 11/26/2024 05/29/2024, 11/11/2023, 11/11/2023 Influenza Vaccine (Season Ended) 2024 01/14/2023, 02/16/2021, 02/14/2020, Additional history exists Diabetes: Annual Urine Albumin-Creatinine Ratio (uACR) 05/29/2025 05/29/2024, 06/30/2023 Diabetes: Annual GFR (Glomerular Filtration Rate) 08/07/2025 08/07/2024, 06/27/2024, 05/29/2024, Additional history exists Hypertension/CHF/CAD Annual BMP Blood Test 08/07/2025 08/07/2024, 06/27/2024, 05/29/2024, Additional history exists Cholesterol Screening (Lipid Panel) 05/29/2029 05/29/2024, 06/30/2023 Hepatitis C Screening Completed 05/21/2013 HIB Vaccines Aged Out No longer eligi ble based on patient's age to complete this topic HPV Vaccines Aged Out No longer eligi ble based on patient's age to complete this topic Hepatitis A Vaccines Aged Out No long er eligible based on patient's age to complete this topic Hepatitis B Vaccines Aged Out No long er eligible based on patient's age to complete this topic IPV Vaccines Aged Out No longer eligi ble based on patient's age to complete this topic MMR Vaccines Aged Out No longer eligi ble based on patient's age to complete this topic Meningococcal ACWY Vaccine Aged Out N o longer eligible based on patient's age to complete this topic Meningococcal B Vaccine Aged Out No l onger eligible based on patient's age to complete this topic RSV Immunization Patients Under 20 months Aged Out No longer eligible based on patient's age to complete this topic Varicella Vaccines Aged Out No longer eligible based on patient's age to complete this topic Procedures Procedure Name Priority Date/Time Associated Diagnosis Comments PROCEDURAL ECG Routine 08/07/2024 9:07 AM EDT PROTHROMBIN TIME WITH INR Routine 08/07/2024 8:59 AM EDT Bilateral pulmonary embolism (CMS/HCC V24, CMS/HCC V28) PREALBUMIN Routine 08/07/2024 8:59 AM EDT Excessive body weight loss COMPREHENSIVE METABOLIC PANEL Routine 08/07/2024 8:59 AM EDT Excessive body weight loss CARDIOLIPIN ANTIBODY Routine 07/23/2024 11:16 AM EDT Bilateral pulmonary embolism (CMS/HCC V24, CMS/HCC V28) PROTHROMBIN 86585M MUTATION ANALYSIS Routine 07/23/2024 11:16 AM EDT Bilateral pulmonary embolism (CMS/HCC V24, CMS/HCC V28) FACTOR V LEIDEN Routine 07/23/2024 11:16 AM EDT Bilateral pulmonary embolism (CMS/HCC V24, CMS/HCC V28) ANTITHROMBIN III ACTIVITY Routine 07/23/2024 11:16 AM EDT Bilateral pulmonary embolism (CMS/HCC V24, CMS/HCC V28) PROTEIN S ACTIVITY Routine 07/23/2024 11 :16 AM EDT Bilateral pulmonary embolism (CMS/HCC V24, CMS/HCC V28) PROTEIN C ACTIVITY Routine 07/23/2024 11 :16 AM EDT Bilateral pulmonary embolism (CMS/HCC V24, CMS/HCC V28) CT ABDOMEN PELVIS W CONTRAST STAT 06/28/2024 6:38 AM EST CBC WITH AUTO DIFFERENTIAL STAT 06/27/2024 9:45 PM EST LIPASE STAT 06/27/2024 9:45 PM EST COMPREHENSIVE METABOLIC PANEL STAT 06/27/2024 9:45 PM EST CBC AND DIFFERENTIAL STAT 06/27/2024 9:45 PM EST MICROALBUMIN CREATININE URINE RATIO Routine 05/29/2024 10:29 AM EST Type 2 diabetes mellitus with other diabetic kidney complication, without long-term current use of insulin (CMS/HCC V24, CMS/HCC V28) COMPREHENSIVE METABOLIC PANEL Routine 05/29/2024 10:29 AM EST Type 2 diabetes mellitus with other diabetic kidney complication, without long-term current use of insulin (CMS/HCC V24, CMS/HCC V28) HEMOGLOBIN A1C Routine 05/29/2024 10:29 AM EST Type 2 diabetes mellitus with other diabetic kidney complication, without long-term current use of insulin (CMS/HCC V24, [facility] V28) LIPID PANEL WITH REFLEX TO DIRECT LDL Routine 05/29/2024 10:29 AM EST Type 2 diabetes mellitus with other diabetic kidney complication, without long-term current use of insulin (CMS/HCC V24, CMS/HCC V28) DIABETES EYE EXAM Routine 06/27/2023 COLONOSCOPY Routine 07/24/2018 HEPATITIS C SCREENING Routine 05/21/2013 from Last 3 Months or Most Recently Relevant to Health Maintenance Results * ECG 12 lead - Procedural (No Charge) (08/07/2024 9:07 AM EDT) Ventricular Rate ECG 66 BPM GEMUSE Atrial Rate 66 BPM GEMUSE P-R Interval 162 ms GEMUSE QRS Duration 78 ms GEMUSE Q-T Interval 424 ms GEMUSE QTc 444 ms GEMUSE P Wave [place] 97 degrees GEMUSE R [place] -12 degrees GEMUSE T [place] 10 degrees GEMUSE ECG Interpretation Normal sinus rhythm When compared with ECG of 28-SEP-2023 12:36, No significant change was found Confirmed by MARKIE LOPEZ ([id number]) on 08/08/2024 5:19:38 PM GEMUSE 08/07/2024 9:07 AM EDT 08/08/2024 5:19 PM EDT us Hravinder Monahan MD ECG ORDERABLES Final Resul t GEMUSE * Prothrombin time with INR (08/07/2024 8:59 AM EDT) Protime 11.7 10.6 - 13.9 sec LAB COAGULATION METHOD 08/07/2024 9:22 AM EDT [facility] INR 0.9 LAB COAGULATION METHOD 08/07/2024 9:22 AM EDT [facility] Blood Venous blood specimen / Unknown Venipuncture / Unknown 08/07/2024 8:59 AM EDT 08/07/2024 9:15 AM EDT us Harvinder Monahan MD LAB BLOOD ORDERABLES Final Result Performing Organization Address City/[facility]/ZIP Co de Phone Number [facility] [address] [place] [address], [place] [phone] * Prealbumin (08/07/2024 8:59 AM EDT) Prealbumin 19 18 - 45 mg/dL LAB CHEMISTRY METHOD 08/07/2024 9:45 AM EDT [facility] Blood Venous blood specimen / Unknown Venipuncture / Unknown 08/07/2024 8:59 AM EDT 08/07/2024 9:15 AM EDT us Harvinder Monahan MD LAB BLOOD ORDERABLES Final Result Performing Organization Address [facility]/ZIP Co de Phone Number [facility] [address] [place] [address], [place] [phone] * (ABNORMAL) Comprehensive metabolic panel (08/07/2024 8:59 AM EDT) Only the most recent of3 resultswithin the time period is included. Sodium 140 133 - 145 mmol/L LAB CHEMISTRY METHOD 08/07/2024 9:45 AM EDT [facility] Potassium 3.6 3.5 - 5.5 mmol/L LAB CHEMISTRY METHOD 08/07/2024 9:45 AM EDT [facility] Chloride 111(H) 96 - 110 mmol/L LAB CHEMISTRY METHOD 08/07/2024 9:45 AM EDT [facility] CO2 21 21 - 32 mmol/L LAB CHEMISTRY METHOD 08/07/2024 9:45 AM EDT [facility] Anion Gap 8 3 - 11 LAB CHEMISTRY METHOD 08/07/2024 9:45 AM [facility] Glucose 117(H) 70 - 100 mg/dL LAB CHEMISTRY METHOD 08/07/2024 9:45 AM [facility] BUN 30(H) 5 - 25 mg/dL LAB CHEMISTRY METHOD 08/07/2024 9:45 AM [facility] Creatinine 1.29 0.70 - 1.30 mg/dL LAB CHEMISTRY METHOD 08/07/2024 9:45 AM [facility] eGFR 62 >=60 mL/min/1. 73m2 LAB CHEMISTRY METHOD 08/07/2024 9:45 AM [facility] Comment:Calculation based on the??Chronic Kidney Disease Epidemiology Collaboration (CKD-EPI) equation refit??without adjustment for race. BUN/Creatinine Ratio 23.3 LAB CHEMISTRY METHOD 08/07/2024 9:45 AM [facility] Calcium 8.1(L) 8.5 - 10.5 mg/dL LAB CHEMISTRY METHOD 08/07/2024 9:45 AM [facility] AST (SGOT) 22 10 - 42 unit/L LAB CHEMISTRY METHOD 08/07/2024 9:45 AM [facility] ALT (SGPT) 28 10 - 60 unit/L LAB CHEMISTRY METHOD 08/07/2024 9:45 AM [facility] Alkaline Phosphatase 110 42 - 121 unit/L LAB CHEMISTRY METHOD 08/07/2024 9:45 AM [facility] Total Protein 6.1 6.0 - 8.0 g/dL LAB CHEMISTRY METHOD 08/07/2024 9:45 AM [facility] Albumin 3.3 3.2 - 5.0 g/dL LAB CHEMISTRY METHOD 08/07/2024 9:45 AM [facility] Total Bilirubin 0.5 0.0 - 1.4 mg/dL LAB CHEMISTRY METHOD 08/07/2024 9:45 AM [facility] Blood Venous blood specimen / Unknown Venipuncture / Unknown 08/07/2024 8:59 AM EDT 08/07/2024 9:15 AM EDT us Harvinder Monahan MD LAB BLOOD ORDERABLES Final Result [facility] [address] [place] [address], * (ABNORMAL) Prothrombin 81921C mutation analysis (07/23/2024 11:16 AM EDT) Prothrombin 79248E Mutation Analysis Heterozyg ous(A) 07/27/2024 1:59 PM EDT [facility] Comment: Both the wild type (WT) F2 gene and the c.*97G>A pathogenic variant ([id number]) were detected indicating a heterozygous c.*97G>A genotype for this specimen. Heterozygosity for the c.*97G>A variant is associated with overproduction of F2 prothrombin and an increased risk for venous thrombosis. Prothrombin thrombophilia is inherited in an autosomal dominant manner and adults heterozygous for the c.*97G>A variant have a 2 to 5-fold increased risk of thrombosis. The prevalence of c.*97G>A heterozygosity is 2-5% in individuals of descent. The variant is extremely rare in individuals of , , or descent. The clinical expression of prothrombin thrombophilia is variable. Many heterozygous individuals never develop thrombosis. Patients heterozygous for both c.*97G>A variant and the Factor V Leiden mutation often experience earlier onset of thrombosis that tends to be more severe than presence of the individual alleles. Genetic counseling is recommended to help determine the benefit of testing asymptomatic family members. This test was performed using the letty(R) Factor II Test (Fernandez) - an in vitro diagnostic device that uses real-time quantitative Polymerase Chain Reaction (qPCR) for the detection and genotyping of the human Factor II (F2) gene. The test detects the presence of the wild type (WT) F2 gene and the pathogenic c.*97G>A variant (also known as [id number]) in genomic DNA isolated from whole blood specimens as an aid in diagnosing patients with suspected thrombophilia. The letty(R) Factor II Test and the letty z 480 analyzer are used together for automated amplification and detection. The limit of detection for this test is 0.1 ng/uL of genomic DNA (2.5 ng/PCR reaction). Test performed at [facility], [address], [place] [address] ? [phone] Madelyn Villegas MD, PhD - Script Girl Blood Venous blood specimen / Unknown Venipuncture / Unknown 07/23/2024 11:16 AM EDT 07/23/2024 1:37 PM EDT Richard Oneill MD LAB MOLECULAR DIAGNOSTICS OR DERABLES Final Result Performing Organization Address [facility] Co de Phone Number [facility] [address] [place] [address] * Protein S activity (07/23/2024 11:16 AM EDT) [facility] Protein S Activity 72 65 - 140 % 2024 10:48 AM EDT [facility] Comment: Heparin levels up to 1 IU/mL do not affect test results; higher levels may cause false elevation. ??Thrombin inhibitors and direct oral anticoagulants may lead to over-estimation of proein S level by this assay. Note that measurement of protein S or free protein S antigen levels would be less affected by medication. Test performed at [facility], [address], [place] ??[address] ? [phone] Madelyn Villegas MD, PhD - Script Girl Blood Venous blood specimen / Unknown Venipuncture / Unknown 07/23/2024 11:16 AM EDT 07/23/2024 1:37 PM EDT Richard Oneill MD LAB BLOOD ORDERABLES Final R esult Performing Organization Address [facility]/ZIP Co de Phone Number [facility] [address] [place] [address] * Protein C activity (07/23/2024 11:16 AM EDT) Pathologist [facility] Protein C Activity 75 70 - 130 % 07/26/2024 10:48 AM EDT [facility] Comment: Heparin levels up to 1 IU/mL do not affect test results. Higher levels may cause elevated levels. Test performed at [facility], [address], [place], [place] ??[address] ? [phone] Madelyn Villegas MD, PhD - Script Girl Blood Venous blood specimen / Unknown Venipuncture / Unknown 07/23/2024 11:16 AM EDT 07/23/2024 1:37 PM EDT Richard Oneill MD LAB BLOOD ORDERABLES Final R esult [facility] [address] [place] [address] * Cardiolipin antibody (07/23/2024 11:16 AM EDT) [facility] Cardiolipin Antibody Screen Negative Negative LAB CHEMISTRY METHOD 07/24/2024 10:16 AM EDT [facility] Blood Venous blood specimen / Unknown Venipuncture / Unknown 07/23/2024 11:16 AM EDT 07/23/2024 1:36 PM EDT Richard Oneill MD LAB BLOOD ORDERABLES Final R esult [facility] [address] [place] [address], * Factor V leiden (07/23/2024 11:16 AM EDT) [facility] Factor V Leiden Mutation Negative 07/27/2024 1:59 PM EDT [facility] Comment: The pathogenic F5 Leiden variant (c.1691G>A) was NOT DETECTED. The specimen was determined to be homozygous for the wild type (WT) F5 gene. This test does not rule out other mutations that may contribute to venous thrombosis. This test was performed using the letty(R) Factor V Test (Fernandez) - an in vitro diagnostic device that uses real-time quantitative Polymerase Chain Reaction (qPCR) for the detection and genotyping of the human factor V (F5) gene. The test detects the presence of the wild type (WT) F5 gene and the pathogenic c.1691G>A variant (also known as the F5 Leiden variant) in genomic DNA isolated from whole blood specimens as an aid in diagnosing patients with suspected thrombophilia. The letty(R) Factor V Test and the letty z 480 analyzer are used together for automated amplification and detection. The limit of detection for this test is 0.1 ng/uL of genomic DNA (2.5 ng/PCR reaction). Test performed at [facility], [address], [place] ??[address] ? [phone] Madelyn Villegas MD, PhD - Script Girl Blood Venous blood specimen / Unknown Venipuncture / Unknown 07/23/2024 11:16 AM EDT 07/23/2024 1:37 PM EDT Richard Oneill MD LAB MOLECULAR DIAGNOSTICS OR DERABLES Final Result [facility] [address] [place] [address] * Antithrombin III activity (07/23/2024 11:16 AM EDT) [facility] Antithrombin III Activity 98 80 - 120 % 07/26/2024 10:[address] [facility] Comment: AT3 Activity is affected by thrombin inhibitors. Test performed at [facility], [address], [place] ??[address] ? [phone] Madelyn Villegas MD, PhD - Script Girl Blood Venous blood specimen / Unknown Venipuncture / Unknown 07/23/2024 11:16 AM EDT 07/23/2024 1:37 PM EDT us Richard Oneill MD LAB BLOOD ORDERABLES Final R esult [facility] [place] [address] * CT Abdomen Pelvis w Contrast (06/28/2024 6:38 AM EST) Anatomical Region Laterality Modality Body Computed Tomogra phy 06/28/2024 6:58 AM EST Addenda Addendum by Kenny Lindsay MD on 06/28/2024 7:23 AM EST ADDENDUM: This report was discussed with Jean Velasquez RN on Jun 28, 2024 07:22:00 EST. This document has been electronically signed by: Lyric Mckinnon on 06/28/2024 07:23:05 Impressions 06/28/2024 6:58 AM EST 1. Suspect internal hernia with secondary small and large bowel obstructions as described above. 2. Mild left hydronephrosis with scattered subcentimeter calculi measuring no more than 3 mm. This document has been electronically signed by: Kenny Lindsay MD on 06/28/2024 06:58:16 Narrative 06/28/2024 6:58 AM EST INDICATION: Bowel obstruction suspected CT abdomen and pelvis with contrast Comparison: None Findings: No consolidation or effusion. Cardiomegaly without significant pericardial effusion. Coronary artery calcifications. Hepatic steatosis noted. Hepatomegaly. Mild left hydronephrosis with scattered subcentimeter calculi measuring no more than 3 mm. Diffuse fluid-filled bowel with air-fluid levels. Colonic trans positioning anterior to the liver. Colonic and small bowel distention. Swirling of the mesentery in the right upper quadrant with transition point to tapering involving dilated loop of small bowel series 602, image 35, consistent with internal hernia and SBO. Periumbilical fat containing hernia. Prominent inguinal nodes. No acute fracture. Osteopenia with diffuse multilevel spondylosis. Grade 1 anterolisthesis at L5-S1 with posterior disc osteophyte complex. L5 pars defects. Diffuse anasarca. Diffuse atheromatous plaque disease throughout the aorta and branch vessels, without aneurysmal dilatation. Postcholecystectomy. Procedure Note Kenny Lindsay MD - 06/28/2024 INDICATION: Bowel obstruction suspected CT abdomen and pelvis with contrast Comparison: None Findings: No consolidation or effusion. Cardiomegaly without significant pericardial effusion. Coronary artery calcifications. Hepatic steatosis noted. Hepatomegaly. Mild left hydronephrosis with scattered subcentimeter calculi measuringno more than 3 mm. Diffuse fluid-filled bowel with air-fluid levels. Colonic trans positioning anterior to the liver. Colonic and small bowel distention. Swirling of the mesentery in the right upper quadrant with transition point to tapering involving dilated loop of small bowel series 602,image 35, consistent with internal hernia and SBO. Periumbilical fat containing hernia. Prominent inguinal nodes. No acute fracture. Osteopenia with diffuse multilevel spondylosis. Grade 1 anterolisthesisat L5-S1 with posterior disc osteophyte complex. L5 pars defects. Diffuse anasarca. Diffuse atheromatous plaque disease throughout the aorta and branch vessels, without aneurysmal dilatation. Postcholecystectomy. IMPRESSION: 1. Suspect internal hernia with secondary small and large bowel obstructions as described above. 2. Mild left hydronephrosis with scattered subcentimeter calculimeasuring no more than 3 mm. This document has been electronically signed by: Kenny Lindsay MD on 06/28/2024 06:58:16 Michelle Mccormick MD IM CT PROCEDURES Edited Result - Final * (ABNORMAL) CBC auto differential (06/27/2024 9:45 PM EST) WBC 7.6 4.8 - 10.8 K/mcL LAB HEMETOLOGY METHOD 06/27/2024 10:[address] [facility] RBC 4.10(L) 4.50 - 5.50 M/mcL LAB HEMETOLOGY METHOD 06/27/2024 10:[address] [facility] Hemoglobin 10.9(L) 13.5 - 17.5 g/dL LAB HEMETOLOGY METHOD 06/27/2024 10:[address] [facility] Hematocrit 35.1(L) 42.0 - 54.0 % LAB HEMETOLOGY METHOD 06/27/2024 10:[address] [facility] MCV 84.8 79.0 - 98.0 FL LAB HEMETOLOGY METHOD 06/27/2024 10:[address] [facility] MCH 26.3(L) 27.0 - 32.0 pcg LAB HEMETOLOGY METHOD 06/27/2024 10:[address] [facility] MCHC 31.1(L) 32.0 - 37.0 g/dL LAB HEMETOLOGY METHOD 06/27/2024 10:[address] [facility] RDW 15.7(H) 11.0 - 15.0 % LAB HEMETOLOGY METHOD 06/27/2024 10:[address] [facility] Platelets 256 130 - 400 K/mcL LAB HEMETOLOGY METHOD 06/27/2024 10:[address] [facility] MPV 9.3 7.0 - 11.0 FL LAB HEMETOLOGY METHOD 06/27/2024 10:[address] [facility] NRBC 0.0 <1.0 % LAB HEMETOLOGY METHOD 06/27/2024 10:[address] [facility] NRBC Absolute 0.00 <0.10 K/mcL LAB HEMETOLOGY METHOD 06/27/2024 10:[address] [facility] Neutrophils Relative 66.7 % LAB HEMETOLOGY METHOD 06/27/2024 10:[address] [facility] Lymphocytes Relative 20.7 % LAB HEMETOLOGY METHOD 06/27/2024 10:[address] [facility] Monocytes Relative 7.0 % LAB HEMETOLOGY METHOD 06/27/2024 10:[address] [facility] Eosinophils Relative 5.0 % LAB HEMETOLOGY METHOD 06/27/2024 10:[address] [facility] Basophils Relative 0.3 % LAB HEMETOLOGY METHOD 06/27/2024 10:[address] [facility] Immature Granulocytes Relative 0.3 % LAB HEMETOLOGY METHOD 06/27/2024 10:[address] [facility] Neutrophils Absolute 5.08 1.50 - 7.00 K/mcL LAB HEMETOLOGY METHOD 06/27/2024 10:[address] [facility] Lymphocytes Absolute 1.57 1.00 - 5.00 K/mcL LAB HEMETOLOGY METHOD 06/27/2024 10:[address] [facility] Monocytes Absolute 0.53 0.20 - 1.00 K/mcL LAB HEMETOLOGY METHOD 06/27/2024 10:[address] [facility] Eosinophils Absolute 0.38 0.00 - 0.50 K/mcL LAB HEMETOLOGY METHOD 06/27/2024 10:[address] [facility] Basophils Absolute 0.02 0.00 - 0.20 K/mcL LAB HEMETOLOGY METHOD 06/27/2024 10:[address] [facility] Immature Granulocytes Absolute 0.02 0.00 - 0.03 K/mcL LAB HEMETOLOGY METHOD 06/27/2024 10:[address] [facility] Blood Venous blood specimen / Unknown Venipuncture / Unknown 06/27/2024 9:45 PM EST 06/27/2024 10:04 PM EST us Jose Dick DO LAB BLOOD ORDERABLES Final Res ult [facility] [address] [place] [address], * Lipase (06/27/2024 9:45 PM EST) Lipase 38 13 - 75 unit/L LAB CHEMISTRY METHOD 06/27/2024 10:31 PM EST [facility] Blood Venous blood specimen / Unknown Venipuncture / Unknown 06/27/2024 9:45 PM EST 06/27/2024 10:04 PM EST Jose Dick DO LAB BLOOD ORDERABLES Final Res ult Performing Organization Address City/[facility]/ZIP Co de Phone Number [facility] [address] [place] [address], [place] [phone] * Lipid panel with reflex to direct LDL (05/29/2024 10:29 AM EST) Cholesterol 88 0 - 200 mg/dL LAB CHEMISTRY METHOD 05/29/2024 2:24 PM EST [facility] Triglycerides 48 0 - 150 mg/dL LAB CHEMISTRY METHOD 05/29/2024 2:[address] [facility] HDL 47 >=40 mg/dL LAB CHEMISTRY METHOD 05/29/2024 2:[address] [facility] LDL Calculated 31 0 - 100 mg/dL LAB CHEMISTRY METHOD 05/29/2024 2:24 PM EST [facility] VLDL Cholesterol Sp 9.6 mg/dL LAB CHEMISTRY METHOD 05/29/2024 2:24 PM EST [facility] Non HDL Chol. (LDL+VLDL) 41 <145 mg/dL LAB CHEMISTRY METHOD 05/29/2024 2:24 PM EST [facility] Chol/HDL Ratio 1.9 0.0 - 4.4 LAB CHEMISTRY METHOD 05/29/2024 2:[address] [facility] Blood Venous blood specimen / Unknown Venipuncture / Unknown 05/29/2024 10:29 AM EST 05/29/2024 10:29 AM EST Ankit Salazar MD LAB BLOOD ORDERABLES Final Res ult Performing Organization Address City/[facility]/ZIP Co de Phone Number [facility] [address] [place] [address], [place] [phone] * Microalbumin creatinine urine ratio (05/29/2024 10:29 AM EST) Creatinine, Urine 183.0 mg/dL LAB CHEMISTRY METHOD 05/29/2024 12:[address] [facility] Microalb, Ur 8.4 0.0 - 29.0 mg/L LAB CHEMISTRY METHOD 05/29/2024 12:[address] [facility] Microalb/Creat Ratio 5 <30 mg/g creat LAB CHEMISTRY METHOD 05/29/2024 12:[address] [facility] Urine Urine specimen obtained by clean catch procedure / Unknown Non-blood Collection / Unknown 05/29/2024 10:29 AM EST 05/29/2024 10:29 AM EST us Ankit Salazar MD LAB URINE ORDERABLES Final Res ult [facility] [address] [place] [address], [place] [phone] * Hemoglobin A1c (05/29/2024 10:29 AM EST) Pathologist [facility] Hemoglobin A1C 5.4 <6.5 % LAB CHEMISTRY METHOD 05/29/2024 2:[address] [facility] Mean Bld Glu Estim. 108 mg/dL LAB CHEMISTRY METHOD 05/29/2024 2:[address] [facility] Blood Venous blood specimen / Unknown Venipuncture / Unknown 05/29/2024 10:29 AM EST 05/29/2024 10:29 AM EST us Ankit Salazar MD LAB BLOOD ORDERABLES Final Res ult [facility] [address] [place] [address], [place] [phone] * Hm Diabetes Eye Exam (06/27/2023) [facility] Diabetes: Annual Retina Eye Exam abstracted Historical Provider HEALTH MAINTENANCE Final Result * Colonoscopy (07/24/2018) [facility] Colonoscopy negative, abstracted Anatomical Region Laterality Modality Other [facility] Provider HEALTH MAINTENANCE Final Result * Hepatitis C Screening (05/21/2013) [facility] Hepatitis C Screening abstracted Historical Provider HEALTH MAINTENANCE Final Result from Last 3 Months or Most Recently Relevant to Health Maintenance Insurance MEDICARE [employer] Care Teams College Athletic Director Relationship Specialty Start Date End Date Ankit Salazar MD [address] [place] [phone] PCP - General Internal Medicine 05/03/24
--- OUTSIDE RECORDS SUMMARY | 2024-08-14 16:47 | XMS_ITS | Clinical Summary ---
Author Organization [facility] Facility Address [address] [place] [address], [place] [address] Care Team Providers Care Firepot Operator And Tender Name Role Phone Ankit Salazar MD Primary Care Provider [phone] Social History Tobacco Use Types Packs/Day Years Used Date Smoking Tobacco: Never Assessed Sex and Gender Information Value Date Recorded Sex Assigned at Not on file Legal Sex Male 8:11 AM EDT Gender Identity Not on file Sexual Orientation Not on file Plan of Treatment Health Maintenance Due Date Last Done Comments Colorectal Cancer Screening: Annual FOBT 12/22/2007 Colorectal Cancer Screening: Colonoscopy 12/22/2007 Colorectal Cancer Screening: Sigmoidoscopy 12/22/2007 Pneumococcal Vaccine: 50+ Ye ars (1 of - PCV) 12/22/2023 Influenza Vaccine (Season Ended) 2024 Hepatitis B Vaccine Aged Out No longe r eligible based on patient's age to complete this topic Pneumococcal Vaccine: Peds ( 0 to 5 Years) and At-Risk Patients (6 to 49 Years) Aged Out No longer eligible b ased on patient's age to complete this topic Insurance Medicare Medicaid [place] Care Teams Firepot Operator And Tender Relationship Specialty Start Date End Date Ankit Salazar MD PCP - General Internal Medicine 08/04/23
--- OUTSIDE RECORDS SUMMARY | 2024-08-14 16:47 | XMS_ITS | Encounter Summary ---
Author Organization [facility] Address [address] [place] [address] Care Team Providers Care Digital Forensic Analyst Name Role Phone Ankit Salazar MD Primary Care Provider [phone] Reason for Referral * Consultation (Urgent) - Closed Specialty Diagnoses / Procedures Referred By Orion t Referred To Contact General Surgery Diagnoses Hernia of abdominal wall Ankit Salazar MD [address] [place] [phone] Phone: tel: fax: Harvinder Monahan MD [address] [place] [phone] Phone: tel: fax: Referral ID Status Reason Start Date Expiration Date V isits Requested Visits Authorized [id number] Closed Specialty Services Required 06/29/2024 06/29/2025 1 1 Reason for Visit * Reason Onset Date Comments Abdominal Pain 06/28/2024 Encounter Details Date Type Department Care Team (Late st Contact Info) Description 06/28/2024 Nurse Triage Internal Medicine - [address] [phone] Ankit Salazar MD [address] [place] [id number] Abdominal Pain Social History Tobacco Use Types Packs/Day Years [...] as of this encounter Progress Notes * Mary Marcano RN - 06/28/2024 2:00 PM EST Spoke with the patient stated he was a [facility] ER till 2 am 06/28 , was having abdominal pain had a Cat Scan has a hernia ( please see [facility] encounter) he saw a surgeon Dr. Monahan , wanted to take him to surgery he refused because he had things to take care of at home first. Was told to get a referral for the surgeon. Patient left AMA Please review and advise Referral pended * Nate Ba - 06/28/2024 1:22 PM EST Symptoms patient is presenting: pt c/o Abdominal pain. Pt was seen today @ [facility] ED. For ALL patients calling to schedule any appointment (routine, sick visit, follow up, consult, etc.) in the outpatient setting please ask the following questions: Do you have fever of higher than 101, sore throat with difficulty swallowing or severe shortness ofbreath? NO If YES to any of these above symptoms, send a message to triage and do not book. Red dot. If no, an audio or video visit should be booked. Have you had close contact with someone with Coronavirus in the last 14 days? NO Have you traveled abroad? NO Have you traveled recently to another state outside of [place], [place], [place], [place], [place], [place], [place]? NO o If yes, did you quarantine for 14 days or have a negative covid test? NO If yes to any of the above, patient is not to be scheduled in office until after 14 day quarantine or negative covid test. If pain or injury related was it due to an accident at work or from a motor vehicle accident? NO If yes, gather 3rd democrat insurance information Date of accident/Injury: n/a How long has patient had these symptoms?: on going PCP: Marie Payor[place] / [place] / Product Type: MEDICARE [id number] documented in this encounter Plan of Treatment Upcoming Encounters Date Type Department Care Team (Latest Contact Info) Description 08/20/2024 9:00 AM EDT Hospital Encounter [facility] OR [address] [place] [address] Harvinder Monahan MD [address] [address] 08/20/2024 9:00 AM EDT - 08/20/2024 1:30 PM EDT Surgery [facility] Main OR [address] [place] [address] Harvinder Monahan MD [address] [address] REPAIR INCISIONAL HERNIA [[id number] (CPT??)] 09/04/2024 1:15 PM EDT Office Visit General Surgery - [place] [address] [phone] Harvinder Monahan MD [address] [address] 10/05/2024 8:00 AM EDT Appointment [facility] Endoscopy [address] [place] [address] Kirk Snowden DO [address] [address] Scheduled Procedures Name Priority Associated Diagnoses Date/Ti [...] hernia Internal hernia 08/20/2024 9:00 AM EDT Scheduled Referrals Name Type Priority Associated Diagnoses Order Schedule Ambulatory referral to General Surgery Outpatient Referral Routine Hernia of abdominal wall 1 Occurrences starting 06/29/2024 until 06/28/2025 documented as of this encounter Visit Diagnoses Diagnosis Hernia of abdominal wall- Primary Unspecified ventral hernia without mention of obstruction or gangrene Recurrent ventral incisional hernia Internal hernia Hernia of other specified sites of abdominal cavity without mention of obstruction or gangrene documented in this encounter Care Teams Digital Forensic Analyst Relationship Specialty Start Date End Date Ankit Salazar MD [address] [place] [id number] PCP - General Internal Medicine 05/03/24 documented as of this encounter
== END 2024-08-14 14:38 | disposition home or self-care (01) ==
LOC: HO.HOS 14:00
PROVIDERS: Visit Provider Physician Assistant
DX: M19.011 Primary osteoarthritis, right shoulder (principal); Z04.3 Encounter for examination and observation following other accident
CPT/HCPCS: 99204

== ENCOUNTER → 2024-08-14 14:06 | Outpatient (BNV) | payer OTHER, MEDICARE, SELFPAY | PROVIDERS: Visit Provider Radiology Diagnostic Radiology | DX: M25.511 Pain in right shoulder (principal) | CPT/HCPCS: 73030 ==

== ENCOUNTER 2025-01-08 15:14 | Outpatient (AMB) | payer OTHER, MEDICARE, SELFPAY ==
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
[2025-01-08 15:26] VITALS: BMI 23.1
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
--- OUTSIDE RECORDS SUMMARY | 2025-01-08 18:43 | XMS_ITS | Clinical Summary ---
Author Organization [facility] Address [address] [place] [address] Phone Care Team Providers Care Fisher Oyster Name Role Phone Ankit Salazar MD Primary Care Provider [phone] Allergies Active Allergy Reactions Criticality Noted Date Comments Avocado Anaphylaxis High 09/04/2014 Throat swells up and closes Latex Anaphylaxis High 01/21/2021 Medications allopurinoL (ZYLOPRIM) 100 mg tablet TAKE 1 TABLET BY MOUTH TWICE DAILY 4 Active aluminum-magnes ium hydroxide-simet hicone (MAALOX) 200-200-20 mg/5 mL suspension Take 15 mL by mouth 4 times daily as needed for Other (heartburn). 4 Active ammonium lactate (LAC-HYDRIN) 12 % lotion Apply to soles of feet daily. At night wear socks to bed 3 Active blood-glucose meter (Contour Next One Meter) misc 1 Device by Does not apply route 2 times daily. 3 Active flash glucose sensor (FREESTYLE HERLINDA 2 SENSOR MISC) 1 Device by Does not apply route every 14 days. 2 Active diclofenac (VOLTAREN) 1 % topical gel Apply 4 g topically 2 times daily. For 8 weeks 0 Active blood sugar diagnostic (Contour Next Test Strips) test strip USE TWICE DAILY 2 Active magnesium oxide (MAG-OX) 400 mg magnesium tablet Take 1 Tablet by mouth 2 times daily. 4 Active miconazole (MICOTIN) 2 % powder Sprinkle inbetween toes after drying after showers 9 Active lancets lancets Microlet Lancets Misc TEST TWICE DAILY 2 Active omega-3 fatty acids 1,000 mg capsule Take by mouth. Activ e potassium chloride 20 mEq tablet extended release Take 1 Tablet by mouth daily. 4 Active SODIUM BICARBONATE ORAL Take by mouth. Activ e atorvastatin (LIPITOR) 20 mg tablet Take 1 tablet (20 mg total) by mouth 1 (one) time each day. 90 tablet 1 5 Active pantoprazole (PROTONIX) 40 mg EC tablet TAKE 1 TABLET BY MOUTH DAILY ON AN EMPTY STOMACH, WAIT 30 MINUTES AND THEN EAT TO ACTIVATE 30 tablet 3 5 Active glyBURIDE (DIABETA) 5 mg tablet Take 2 tablets (10 mg total) by mouth 1 (one) time each day with breakfast. Active acetaminophen (TYLENOL) 500 mg tablet Take 2 tablets (1,000 mg total) by mouth every 8 (eight) hours. 24 tablet 5 Active docusate sodium (COLACE) 100 mg capsule Take 1 capsule (100 mg total) by mouth 2 (two) times a day. 14 each 5 Active oxyCODONE (ROXICODONE) 5 mg immediate release tablet Take 1 tablet (5 mg total) by mouth every 4 (four) hours if needed for moderate pain. Max Daily Amount: 30 mg 8 tablet 5 Active polyethylene glycol (Golytely) 236-22.74-6.74 -5.86 gram solution Take 4L by mouth once for one dose. May substitue any PEG. Starting at 2PM the day before your procedure drink 1 8oz glasses at your own pace until you complete half of the gallon. Finish 2nd half of the gallon at 8PM. 4000 mL 5 Active bisacodyL (DULCOLAX) 5 mg EC tablet Take 2 tablets by mouth right before beginning bowel prep. See instructions provided by the office 2 tablet 5 Active apixaban (ELIQUIS) 2.5 mg tablet Take by mouth 2 (two) times a day. Unknown dose per pt Active Active Problems Problem Noted Date Diagnosed Date Excessive body weight loss 07/03/2024 History of small bowel obstruction 05/29/2024 GERD (gastroesophageal reflux disease) Gout 04/02/2024 Overview (04/02/2024): last flare up Dec 2011 Hypertension associated with diabetes ([facility] V24, [facility] V28) 04/02/2024 Vitamin D deficiency 04/02/2024 Bilateral pulmonary embolism ([facility] V24, [facility] V28) 11/17/2023 Carotid bruit present 12/13/2022 Numbness and tingling of foot 12/13/2022 Microalbuminuria 03/07/2020 Overview (04/02/2024): 08/2018 41.4 AC joint arthropathy 02/29/2020 Hyperlipidemia 04/16/2019 Periumbilical hernia 09/19/2018 Abdominal wall seroma 09/30/2017 Chronic cholecystitis due to gallbladder calculus with obstruction 09/30/2017 Morbid obesity with BMI of 4 0.0-44.9, adult ([facility] V24, [facility] V28) 09/30/2017 Chronic pain of both shoulders 05/02/2017 Melanoma of eye ([facility] [place]24, [facility] V28) 03/09 Bilateral shoulder pain 11/04/2016 DM (diabetes mellitus), type 2 with renal complications ([facility] V24, [facility] V28) 08/05/2016 Spinal stenosis 08/22/2014 Anemia 05/16/2014 BPH (benign prostatic hyperplasia) 12/22/2013 Overview (04/02/2024): Dr Kumar Pancreatitis 08/13/2013 Overview (04/02/2024): 02/03; ?d/t metformin, unclear Resolved Problems Problem Noted Date Diagnosed Date Resolved Date Small bowel obstruction ([facility] V24, [facility] V28) 09/20/2024 09/21/2024 Recurrent ventral incisional hernia 07/03/2024 08/21/2024 Internal hernia 07/03/2024 08/21/2024 Encounters Date Type Department Care Team Description 11/20/2024 7:41 AM EDT Anesthesia Event [facility] [address] [place] [address] Donato Conde MD 11/20/2024 7:01 AM EDT - 11/20/2024 11:59 PM EDT Hospital Encounter [facility] [address] [place] [address] David Snowden DO Vermes, Rachie, CRNA Walsh, Michael, DO Hx of colonic polyps Discharge Disposition: Home or Self Care 10/16/2024 10:30 AM EDT Office Visit General Surgery - [place] [address] [facility] [address] [place] [address] Harvinder Monahan MD Internal hernia (Primary Dx) from Last 3 Months Immunizations Name Administration [...] Date Site/Laterality Comments OTHER SURGICAL HISTORY PROCEDURE: SD ARTHRS KNEE DRILLING OSTEOCHOND DISSECANS LESION; COMMENT: L knee HERNIA REPAIR PROCEDURE: REPAIR UMBILICAL HERNIA CHOLECYSTECTOMY 09/2017 PROCEDURE: SD CHOLECYSTECTOMY COLONOSCOPY 01/22/2013 PROCEDURE: HISTORICAL COLONOSCOPY; COMMENT: [email or web address]; diverticulosis and small internal hemorrhoids. COLONOSCOPY 05/23/2009 PROCEDURE: HISTORICAL COLONOSCOPY; COMMENT: Tyree@[facility]; 5 mm tubular adenomas x 2. UMBILICAL HERNIA REPAIR 02/05/2021 PROCEDURE: LAP UMBILICAL HERNIA REPAIR; COMMENT: robotic-assisted laparoscopic repair recurrent umbilical hernia without mesh (partially covered by incisional hernia mesh) - Sarita Dick OTHER SURGICAL HISTORY 02/05/2021 PROCEDURE: SD LAP RPR HRNA XCPT INCAL/INGUN NCRC8/STRANGULATED; COMMENT: robotic-assisted laparoscopic incisional hernia repair with mesh (epigastric midline) - Sarita Dick EXPLORATORY LAPAROTOMY APPENDECTOMY RIGHT COLECTOMY Right Medical History Medical History Date Comments HTN (hypertension) 20 yrs DX:HTN (hyper tension) Gout 2003 DX:Gout; COMMENT : last flare up Dec 2011 Vitamin deficiency DX:Vitamin de ficiency GERD (gastroesophageal reflux disease) DX:GERD (gastroesophageal reflux disease) Type II or unspecified type diabetes mellitus without mention of complication, not stated as uncontrolled 2003 DX:Type II or unspecified ty pe diabetes mellitus without mention of complication, not stated as uncontrolled History of colonic polyps 12/05/2017 DX:His tory of colonic polyps; COMMENT: Diminutive tubular adenomas 2 at colonoscopy 2009. Morbid obesity with BMI of 4 0.0-44.9, adult ([facility] V24, [facility] V28) 09/30/2017 DX:Morbid obesity wit h BMI of 40.0-44.9, adult ([facility]) DM (diabetes mellitus), type 2 with renal complications (CMS/HCC V24, [facility] V28) 08/05/2016 DX:DM (diabetes mellitus), t ype 2 with renal complications ([facility]) Microalbuminuria 03/07/2020 DX:Microalbumin uria; COMMENT: 08/2018 Abdominal pain DX:Abdominal franc n Postprandial epigastric pain DX: Postprandial epigastric pain Irritable bowel syndrome DX:Irri table bowel syndrome Passage of loose stools DX:Passa ge of loose stools History of abdominal surgery DX: History of abdominal surgery Abdominal wall hernia DX:Abdomin al wall hernia History of small bowel obstruction DX:History of small bowel obstruction Salmonella Blindness of left eye Family History Medical History Relation Name Comments [...] drink = 0.6 oz pur e alcohol) Food Risk Answer Date Recorded Within the past 12 months we worried whether our food would run out before we got money to buy more. Never true 09/21/2024 Within the past 12 months th e food we bought just didn't last and we didn't have money to get more. Never true 09/21/2024 Interpersonal Safety Answer Date Record ed Physical Abuse 11/20/2024 Verbal Abuse 11/20/2024 Sex and Gender Information Value Date Recorded Sex Assigned at Male 06/28/2024 6:57 AM EST Legal Sex Male 5:07 PM EST Gender Identity Male 06/28/2024 6:57 AM EST Sexual Orientation Choose not to disclose 2024 6:57 AM EST Obstetrics History Last Filed Vital Signs Vital Sign Reading Time Taken Comments Blood Pressure 116/65 11/20/2024 8:18 AM EDT Pulse 56 11/20/2024 8:18 AM EDT Temperature 36.4 C (97.6 F) 11/20/2024 7:58 AM EDT Respiratory Rate 18 11/20/2024 8:18 AM EDT Oxygen Saturation 100% 11/20/2024 8:18 AM EDT Inhaled Oxygen Concentration - - Weight 65.3 kg (144 lb) 11/20/2024 7:24 AM EDT Height 167.6 cm (5' 6 ) 11/20/2024 7:24 AM EDT Body Mass Index 23.24 11/20/2024 7:24 AM EDT Plan of Treatment Health Maintenance Due Date Last Done Comments Diabetes: Annual Foot Exam 1968 Zoster Vaccines (1 of 2) 1977 RSV Immunization Adult Patients (1 - Risk 60-74 years 1-dose series) 2018 Pneumococcal Vaccine: 50+ Years (2 of 2 - PPSV23) 03/19/2022 01/22/2022 Abdominal Aortic Aneurysm (AAA) Screen 04/03/2022 Medicare Annual Wellness Visit 04/03/2022 DTaP,Tdap,and Td Vaccines (2 - Td or Tdap) 05/03/2023 05/03/2013 Depression Screening 04/25/2024 Diabetes: Annual Retina Eye Exam 06/26/2024 06/27/2023 Diabetes: Blood Sugar Control Test (HGBA1C) 11/26/2024 05/29/2024, 11/11/2023, 11/11/2023 COVID-19 Vaccine ( season) 2024 03/27/2021, 08/21/2020, 05/13/2020 Influenza Vaccine (#1) 2024 , 02/16/2021, 02/14/2020, Additional history exists Diabetes: Annual Urine Albumin-Creatinine Ratio (uACR) 05/29/2025 05/29/2024, 06/30/2023 Diabetes: Annual GFR (Glomerular Filtration Rate) 09/21/2025 09/21/2024, 09/20/2024, 09/19/2024, Additional history exists Hypertension/CHF/CAD Annual BMP Blood Test 09/21/2025 09/21/2024, 09/20/2024, 09/19/2024, Additional history exists Social Influencers of Health Screening 09/21/2025 09/21/2024 Falls Risk Assessment 11/20/2025 11/20/2024 Cholesterol Screening (Lipid Panel) 05/29/2029 05/29/2024, 06/30/2023 Colorectal Cancer Screening: Colonoscopy 11/20/2034 11/20/2024, 07/24/2018 Hepatitis C Screening Completed 05/21/2013 HIB Vaccines [...] on patient's age to complete this topic Medical Devices Implanted Type Area Supervisor Riveting Device Identifier Shelf Expiration Date Model / Serial / Lot Sealant Fibrin Vistaseal 10ml - [id number] - [id number] Implanted:Qty: 1 on 08/20/2024 by Harvinder Monahan MD at [facility] Hemostasis N/A: Abdomen [employer] 02/25/2026 [id number] / [id number] / [id number] Mesh Marlex 10x14 Flat Non Abs Ster - Sna - [id number] Implanted:Qty: 1 on 08/20/2024 by Harvinder Monahan MD at [facility] Surgical Mesh Sling Implants N/A: Abdomen CR BARD - [employer]OL [employer] 12/20/2026 [id number] / [id number] / [id number] Procedures Procedure Name Priority Date/Time Associated Diagnosis Comments COLONOSCOPY Routine 11/20/2024 7:57 AM EDT Hx of colonic polyps TISSUE EXAM Routine 11/20/2024 7:55 AM EDT Hx of colonic polyps BASIC METABOLIC PANEL Routine 09/21/2024 6:34 AM EDT MICROALBUMIN CREATININE URINE RATIO Routine 05/29/2024 10:29 AM EST Type 2 diabetes mellitus with other diabetic kidney complication, without long-term current use of insulin (CMS/HCC V24, CMS/HCC V28) HEMOGLOBIN A1C Routine 05/29/2024 10:29 AM EST Type 2 diabetes mellitus with other diabetic kidney complication, without long-term current use of insulin (CMS/HCC V24, CMS/HCC V28) LIPID PANEL WITH REFLEX TO DIRECT LDL Routine 05/29/2024 10:29 AM EST Type 2 diabetes mellitus with other diabetic kidney complication, without long-term current use of insulin (CMS/HCC V24, CMS/HCC V28) DIABETES EYE EXAM Routine 06/27/2023 HEPATITIS C SCREENING Routine 05/21/2013 from Last 3 Months or Most Recently Relevant to Health Maintenance Results * COLONOSCOPY Anesthesia - MAC; [facility] ENDOSCOPY (11/20/2024 7:57 AM EDT) Anatomical Region Laterality Modality Endoscopy 11/20/2024 7:35 AM EDT Impressions 11/20/2024 8:00 AM EDT - Hemorrhoids found on perianal exam. - One 5 mm polyp in the rectum, removed with a cold snare. Resected and retrieved. - Patent end-to-side ileo-colonic anastomosis, characterized by healthy appearing mucosa. - The examination was otherwise normal on direct and retroflexion views. Recommendation: - Discharge patient to home. - High fiber diet. - Continue present medications. - Await pathology results. - Repeat colonoscopy for surveillance based on pathology results. Narrative 11/20/2024 8:00 AM EDT [facility] GI Patient Name: Valerie De Luna Procedure Date: 11/20/2024 7:35 AM Date of : 1960 Age: 63 Gender: Male Note Status: Finalized Attending MD: David Snowden DO, [id number] Procedure Date No Time: 11/20/2024 Procedure: Colonoscopy Indications: Screening for colorectal malignant neoplasm Providers: David Snowden DO Referring MD: Ankit Salazar MD Medicines: Monitored Anesthesia Care Complications: No immediate complications. Estimated blood loss: Minimal. Estimated Blood Loss: Estimated blood loss was minimal. Procedure: Pre-Anesthesia Assessment: - - Prior to the procedure, a History and Physical was performed, and patient medications and allergies were reviewed. The patient is competent. The risks and benefits of the procedure and the sedation options and risks were discussed with the patient. All questions were answered and informed consent was obtained. Patient identification and proposed procedure were verified by the physician, the nurse, the anesthesiologist, the adhesive bonding machine operator and the interactive video technician in the pre-procedure area in the endoscopy suite. Mental Status Examination: alert and oriented. Airway Examination: normal oropharyngeal airway and neck mobility. Respiratory Examination: clear to auscultation. CV Examination: normal. Prophylactic Antibiotics: The patient does not require prophylactic antibiotics. Prior Anticoagulants: The patient has taken no anticoagulant or antiplatelet agents. ASA Grade Assessment: II - A patient with mild systemic disease. After reviewing the risks and benefits, the patient was deemed in satisfactory condition to undergo the procedure. The anesthesia plan was to use monitored anesthesia care (MAC). Immediately prior to administration of medications, the patient was re-assessed for adequacy to receive sedatives. The heart rate, respiratory rate, oxygen saturations, blood pressure, adequacy of pulmonary ventilation, and response to care were monitored throughout the procedure. The physical status of the patient was re-assessed after the procedure. After I obtained informed consent, the scope was passed under direct vision. Throughout the procedure, the patient's blood pressure, pulse, and oxygen saturations were monitored continuously. The Olympus Pediatric Colonoscope was introduced through the anus and advanced to the ileocolonic anastomosis. The colonoscopy was performed without difficulty. The patient tolerated the procedure well. The quality of the bowel preparation was good. Anatomical landmarks were photographed. Findings: Hemorrhoids were found on perianal exam. A 5 mm polyp was found in the rectum. The polyp was sessile. The polyp was removed with a cold snare. Resection and retrieval were complete. Verification of patient identification for the specimen was done. There was evidence of a prior end-to-side ileo-colonic anastomosis in the cecum. This was patent and was characterized by healthy appearing mucosa. The exam was otherwise without abnormality on direct and retroflexion views. Procedure Code(s): --- Professional --- 65750, Colonoscopy, flexible; with removal of tumor(s), polyp(s), or other lesion(s) by snare technique Diagnosis Code(s): --- Professional --- Z12.11, Encounter for screening for malignant neoplasm of colon K64.9, Unspecified hemorrhoids D12.8, Benign neoplasm of rectum Z98.0, Intestinal bypass and anastomosis status CPT copyright 2020 [employer]. All rights reserved. The codes documented in this report are preliminary and upon global account director review may be revised to meet current compliance requirements. DAVID Snowden DO 11/20/2024 7:59:52 AM This report has been signed electronically.David Snowden DO Number of Addenda: 0 Note Initiated On: 11/20/2024 7:35 AM Scope Withdrawal Time: 0 hours 6 minutes 49 seconds Scope In: 7:45:11 AM Scope Out: 7:56:16 AM Endoscopy Department at [facility] - [address] [place] [id number] Procedure Note David Snowden DO - 11/20/2024 [facility] Patient Name: Valerie De Luna Procedure Date: 11/20/2024 7:35 AM Date of : 1960 Age: 63 Gender: Male Note Status: Finalized Attending MD: David Snowden DO, [id number] Procedure Date No Time: 11/20/2024 Procedure: Colonoscopy Indications: Screening for colorectal malignant neoplasm Providers: David Snowden DO Referring MD: Ankit Salazar MD Medicines: Monitored Anesthesia Care Complications: No immediate complications. Estimated blood loss: Minimal. Estimated Blood Loss: Estimated blood loss was minimal. Procedure: Pre-Anesthesia Assessment: - - Prior to the procedure, a History and Physicalwas performed, and patient medications and allergieswere reviewed. The patient is competent. The risks and benefits of the procedure and the sedation optionsand risks were discussed with the patient. Allquestions were answered and informed consent was obtained. Patient identification and proposed procedure were verified by the physician, the nurse, the anesthesiologist, the adhesive bonding machine operator and thetechnician in the pre-procedure area in the endoscopy suite. Mental Status Examination: alert and oriented.Airway Examination: normal oropharyngeal airway and neck mobility. Respiratory Examination: clear to auscultation. CV Examination: normal. Prophylactic Antibiotics: The patient does not requireprophylactic antibiotics. Prior Anticoagulants: The patient has taken no anticoagulant or antiplatelet agents. ASA Grade Assessment: II - A patient with mild systemic disease. After reviewing the risks and benefits,the patient was deemed in satisfactory condition to undergo the procedure. The anesthesia plan was touse monitored anesthesia care (MAC). Immediately priorto administration of medications, the patient was re-assessed for adequacy to receive sedatives. The heart rate, respiratory rate, oxygen saturations, blood pressure, adequacy of pulmonary ventilation,and response to care were monitored throughout the procedure. The physical status of the patient was re-assessed after the procedure. After I obtained informed consent, the scope was passed under direct vision. Throughout theprocedure, the patient's blood pressure, pulse, and oxygen saturations were monitored continuously. TheOlympus Pediatric Colonoscope was introduced through theanus and advanced to the ileocolonic anastomosis. The colonoscopy was performed without difficulty. The patient tolerated the procedure well. The qualityof the bowel preparation was good. Anatomicallandmarks were photographed. Findings: Hemorrhoids were found on perianal exam. A 5 mm polyp was found in the rectum. The polyp was sessile. The polyp was removed with a cold snare. Resection and retrieval were complete. Verificationof patient identification for the specimen was done. There was evidence of a prior wtj-sz-wiazftag-colonic anastomosis in the cecum. This was patent and was characterized by healthy appearing mucosa. The exam was otherwise without abnormality ondirect and retroflexion views. Procedure Code(s): --- Professional --- 81722, Colonoscopy, flexible; with removal of tumor(s), polyp(s), or other lesion(s) by snare technique Diagnosis Code(s): --- Professional --- Z12.11, Encounter for screening for malignantneoplasm of colon K64.9, Unspecified hemorrhoids D12.8, Benign neoplasm of rectum Z98.0, Intestinal bypass and anastomosis status CPT copyright 2020 [employer]. All rights reserved. The codes documented in this report are preliminary and upon global account director reviewmay be revised to meet current compliance requirements. DAVID Snowden DO 11/20/2024 7:59:52 AM This report has been signed electronically.David Snowden DO Number of Addenda: 0 Note Initiated On: 11/20/2024 7:35 AM Scope Withdrawal Time: 0 hours 6 minutes 49 seconds Scope In: 7:45:11 AM Scope Out: 7:56:16 AM Endoscopy Department at [facility] - [address] [place] [id number] IMPRESSION: - Hemorrhoids found on perianal exam. - One 5 mm polyp in the rectum, removed with a cold snare. Resected and retrieved. - Patent end-to-side ileo-colonic anastomosis, characterized by healthy appearing mucosa. - The examination was otherwise normal on directand retroflexion views. Recommendation: - Discharge patient to home. - High fiber diet. - Continue present medications. - Await pathology results. - Repeat colonoscopy for surveillance based on pathology results. us David Snowden DO GI~PROCEDURE ORDERABLES Final Re sult * Tissue exam (11/20/2024 7:55 AM EDT) Final Diagnosis Polyp, rectum, polypectomy: - Colonic mucosa with few dilated, irregularly-sha ped crypts. (See note.) Note: Multiple additional levels are examined. Although a definitive polyp is not identified, the irregular, dilated crypts are suggestive of a hyperplastic polyp. No dysplasia is identified. 11/22/2024 10:39 AM EDT [facility] Gross Description A. Large Intestine, Rectum, polyp x1: Labeled polyp x 1 LI rectum . Received in formalin are four soft, hirsch-red tissue polypoid fragments, ranging from 0.3 to 0.5 cm in greatest diameters, which are wrapped in paper and submitted in toto in one cassette, four pieces, multiple levels on one slide. 11/22/2024 10:39 AM EDT [facility] Disclaimer Unless otherwise specified, all tissue is 10% NB formalin fixed and paraffin embedded. 11/22/2024 10:39 AM EDT [facility] Tissue Rectum structure / Unknown 11/20/2024 7:55 AM EDT 11/20/2024 9:41 AM EDT us David Snowden DO LAB PATHOLOGY ORDERABLES Final R esult [facility] [address] [place] [address], * (ABNORMAL) Basic metabolic panel (09/21/2024 6:34 AM EDT) Sodium 141 133 - 145 mmol/L LAB CHEMISTRY METHOD 09/21/2024 7:34 AM EDT [facility] Potassium 3.7 3.5 - 5.5 mmol/L LAB CHEMISTRY METHOD 09/21/2024 7:34 AM [facility] Chloride 109 96 - 110 mmol/L LAB CHEMISTRY METHOD 09/21/2024 7:34 AM [facility] CO2 26 21 - 32 mmol/L LAB CHEMISTRY METHOD 09/21/2024 7:34 AM [facility] Anion Gap 6 3 - 11 LAB CHEMISTRY METHOD 09/21/2024 7:34 AM [facility] Glucose 101(H) 70 - 100 mg/dL LAB CHEMISTRY METHOD 09/21/2024 7:34 AM [facility] BUN 12 5 - 25 mg/dL LAB CHEMISTRY METHOD 09/21/2024 7:34 AM [facility] Creatinine 0.70 0.70 - 1.30 mg/dL LAB CHEMISTRY METHOD 09/21/2024 7:34 AM [facility] eGFR 102 >=60 mL/min/1. 73m2 LAB CHEMISTRY METHOD 09/21/2024 7:34 AM [facility] Comment:Calculation based on the Chronic Kidney Disease Epidemiology Collaboration (CKD-EPI) equation refit without adjustment for race. BUN/Creatinine Ratio 17.1 LAB CHEMISTRY METHOD 09/21/2024 7:34 AM [facility] Calcium 7.6(L) 8.5 - 10.5 mg/dL LAB CHEMISTRY METHOD 09/21/2024 7:34 AM [facility] Blood Venous blood specimen / Unknown Venipuncture / Unknown 09/21/2024 6:34 AM EDT 09/21/2024 6:46 AM EDT [facility] [place] LAB BLOOD ORDERABLES Final Re sult [facility] [address] [place] [address], * Lipid panel with reflex to direct LDL (05/29/2024 10:29 AM EST) Cholesterol 88 0 - 200 mg/dL LAB CHEMISTRY METHOD 05/29/2024 2:24 PM EST [facility] Triglycerides 48 0 - 150 mg/dL LAB CHEMISTRY METHOD 05/29/2024 2:24 PM EST [facility] HDL 47 >=40 mg/dL LAB CHEMISTRY METHOD 05/29/2024 2:24 PM [facility] LDL Calculated 31 0 - 100 mg/dL LAB CHEMISTRY METHOD 05/29/2024 2:24 PM EST [facility] VLDL Cholesterol Sp 9.6 mg/dL LAB CHEMISTRY METHOD 05/29/2024 2:24 PM [facility] Non HDL Chol. (LDL+VLDL) 41 <145 mg/dL LAB CHEMISTRY METHOD 05/29/2024 2:24 PM [facility] Chol/HDL Ratio 1.9 0.0 - 4.4 LAB CHEMISTRY METHOD 05/29/2024 2:24 PM EST [facility] Blood Venous blood specimen / Unknown Venipuncture / Unknown 05/29/2024 10:29 AM EST 05/29/2024 10:29 AM EST us Ankit Salazar MD LAB BLOOD ORDERABLES Final Res ult [facility] [address] [place] [address], * Microalbumin creatinine urine ratio (05/29/2024 10:29 AM EST) Creatinine, Urine 183.0 mg/dL LAB CHEMISTRY METHOD 05/29/2024 12:22 PM EST [facility] Microalb, Ur 8.4 0.0 - 29.0 mg/L LAB CHEMISTRY METHOD 05/29/2024 12:22 PM [facility] Microalb/Creat Ratio 5 <30 mg/g creat LAB CHEMISTRY METHOD 05/29/2024 12:22 PM EST [facility] Urine Urine specimen obtained by clean catch procedure / Unknown Non-blood Collection / Unknown 05/29/2024 10:29 AM EST 05/29/2024 10:29 AM EST us Ankit Salazar MD LAB URINE ORDERABLES Final Res ult Performing Organization Address [facility]/ZIP Co de Phone Number [facility] [address] [place] [address], [place] [phone] * Hemoglobin A1c (05/29/2024 10:29 AM EST) [facility] Hemoglobin A1C 5.4 <6.5 % LAB CHEMISTRY METHOD 05/29/2024 2:08 PM [facility] Mean Bld Glu Estim. 108 mg/dL LAB CHEMISTRY METHOD 05/29/2024 2:08 PM [facility] Blood Venous blood specimen / Unknown Venipuncture / Unknown 05/29/2024 10:29 AM EST 05/29/2024 10:29 AM EST us Ankit Salazar MD LAB BLOOD ORDERABLES Final Res ult Performing Organization Address [facility]/ZIP Co de Phone Number [facility] [address] [place] [address], [place] [phone] * Diabetes Eye Exam (06/27/2023) [facility] Diabetes: Annual Retina Eye Exam abstracted Historical Provider HEALTH MAINTENANCE Final Result * Hepatitis C Screening (05/21/2013) [facility] Hepatitis C Screening abstracted Historical Provider HEALTH MAINTENANCE Final Result from Last 3 Months or Most Recently Relevant to Health Maintenance Insurance MEDICARE [employer] Advance Directives * Full Code - Default (Latest Code Status on File) Date Activated Date Inactivated Comments 09/20/2024 12:32 AM 09/21/2024 6:08 PM This is ord er is used when code status has not been discussed with the patient, or code status is otherwise unknown/unconfirmed To update the patient's code status, place a code status order. Do not modify or discontinue any currently active code status orders. * Full Code - Default Date Activated Date Inactivated Comments 08/20/2024 12:01 PM 08/21/2024 3:36 PM This is ord er is used when code status has not been discussed with the patient, or code status is otherwise unknown/unconfirmed To update the patient's code status, place a code status order. Do not modify or discontinue any currently active code status orders. * Full Code - Default Date Activated Date Inactivated Comments 08/20/2024 7:34 AM 08/20/2024 12:01 PM This is ord er is used when code status has not been discussed with the patient, or code status is otherwise unknown/unconfirmed To update the patient's code status, place a code status order. Do not modify or discontinue any currently active code status orders. Care Teams Fisher Oyster Relationship Specialty Start Date End Date Ankit Salazar MD [address] [place] [id number] PCP - General Internal Medicine 05/03/24
--- OUTSIDE RECORDS SUMMARY | 2025-01-08 18:43 | XMS_ITS | Clinical Summary ---
Author Organization [facility] Address [address] [place] [id number] Care Team Providers Care Pl Sql Developer Name Role Phone Ankit Salazar MD Primary Care Provider [phone] Social History Tobacco Use Types Packs/Day Years [...] Pneumococcal Vaccine: 50+ Ye ars (1 of 1 - PCV) 2008 Influenza Vaccine (#1) 2024 Hepatitis B Vaccine Aged Out No longe r eligible based on patient's age to complete this topic Insurance Medicare Medicaid [place] Medicare Medicaid [place] Care Teams Pl Sql Developer Relationship Specialty Start Date End Date Ankit Salazar MD PCP - General Internal Medicine 08/04/23
== END 2025-01-08 15:52 | disposition home or self-care (01) ==
LOC: HO.HOS 15:15
PROVIDERS: Visit Provider Physician Assistant
DX: M19.011 Primary osteoarthritis, right shoulder (principal)
CPT/HCPCS: 99213